=== PATIENT | male | born 1945 | race Caucasian/White ===

== ENCOUNTER → 2017-01-11 | Outpatient (CLI) | payer OTHER | LOC: BMCIMAGING 13:29 | PROVIDERS: ATTEND Internal Medicine Rheumatology | DX: M47.897 Other spondylosis, lumbosacral region (principal); M54.5 Low back pain; M70.61 Trochanteric bursitis, right hip; Z79.899 Other long term (current) drug therapy; Z12.5 Encounter for screening for malignant neoplasm of prostate ==

== ENCOUNTER → 2017-02-15 | Outpatient (CLI) | payer OTHER ==
[~2017-02-15] MED LIST: IOPAMIDOL (ISOVUE-M 200) 20 ML VIAL IV ONE; LIDOCAINE 1% 30 ML SDV ONE; NA BICARBONATE 50 MEQ/50 ML VIAL ONE
== END ==
LOC: FIMAGING 08:46
PROVIDERS: ATTEND Neurological Surgery
PROC: 3E0R3KZ Introduction of Other Diagnostic Substance into Spinal Canal, Percutaneous Approach (ICD-10-PCS; principal; 2017-02-15)
DX: M54.5 Low back pain (principal); M51.36 Other intervertebral disc degeneration, lumbar region
CPT/HCPCS: 62304; 72132; 72265; Q9966

== ENCOUNTER → 2017-02-23 | Outpatient (CLI) | payer OTHER | LOC: FCPNEURO 21:30 | PROVIDERS: ATTEND Psychiatry & Neurology Sleep Medicine | DX: G47.39 Other sleep apnea (principal) ==

== ENCOUNTER → 2017-03-06 | Outpatient (CLI) | payer OTHER | LOC: FCPNEURO 23:05 | PROVIDERS: ATTEND Psychiatry & Neurology Sleep Medicine | DX: G47.39 Other sleep apnea (principal) ==

== ENCOUNTER 2017-06-08 18:52 | Emergency (ER) | payer OTHER ==
[2017-06-08 18:58] VITALS: RESP 16; TEMP 97.5
--- NOTE | 2017-06-08 19:33 | EDPHY ---
H & P Time Seen by Provider: 06/08/17 19:27 HPI/ROS: CHIEF COMPLAINT: Abdominal pressure HISTORY OF PRESENT ILLNESS: The patient is a 71-year-old male presenting with abdominal pain that has been ongoing for the past 6 weeks, worse for the past 3 weeks. The patient reports upper abdominal pressure that comes and goes. It is worse after eating and improves after bowel movements or passing gas. The patient took Prilosec for 2 weeks and has been on a diet recommended by his PCP. Neither seem to alleviate his pain. He denies nausea, vomiting, or diarrhea. Patient is currently without abdominal pain. He additionally notes an intermittent headache behind his left eye for the past 6 weeks. This is worse when riding his bicycle. No reported visual changes. The patient has a pacemaker, on anticoagulants, he also complains of a 3 week history of shortness of breath with exertion. Patient states he feels short of breath and dizzy after walking up the stairs or bending over. He was seen in Dr. Hearn's office today and had his pacemaker evaluated, no abnormalities seen. He denies chest pain or palpitations. He feels more fatigued than usual. REVIEW OF SYSTEMS: A comprehensive 10 point review of systems is otherwise negative aside from elements mentioned in the history of present illness. Past Medical/Surgical History: Afib/flutter, on Xarelto Pacemaker, Kidney stones Social History: Nonsmoker. Occasional alcohol. . Smoking Status: Never smoked Physical Exam: General Appearance: Alert, pleasant Eyes: Pupils equal and round, no conjunctival pallor or injection ENT, Mouth: Mucous membranes moist Neck: Normal inspection Respiratory: Lungs are clear to auscultation Cardiovascular: Regular rate and rhythm Gastrointestinal: Abdomen is soft and non-tender Neurological: A&O, nonfocal, normal gait Skin: Warm and dry, no rash Extremities: Nontender, no pedal edema Psychiatric: Mood and affect normal Constitutional: Initial Vital Signs Temperature (C) 36.4 C 06/08/17 18:56 Heart Rate 71 06/08/17 18:56 Respiratory Rate 16 06/08/17 18:56 Blood Pressure 115/74 06/08/17 18:56 O2 Sat (%) 96 06/08/17 18:56 O2 Delivery Mode Room Air Allergies/Adverse Reactions: ENVIRONMENTAL Allergy (Mild, Uncoded 07/05/13 14:35) Other-Enter Comments Home Medications: Medication Instructions Recorded ARIPiprazole [Abilify 2 mg (RX)] 2 mg PO DAILY 01/29/13 Ascorbic Acid [Vitamin C 500 mg 500 mg PO DAILY 01/29/13 (OTC)] Cholecalciferol Vit D3 [Vitamin D3 400 units PO DAILY 01/29/13 400 units (OTC)] Escitalopram Oxalate [Lexapro 10 10 mg PO DAILY 01/29/13 MG (RX)] Multivitamins [Tab-A-Rocio] 1 each PO DAILY 01/29/13 [place]-3 Fatty Acids [Fish Oil 1000 1,000 mg PO BID 01/29/13 mg (OTC)] Vitamin E [Vitamin E 400 units 400 unit PO DAILY 01/29/13 (OTC)] Armodafinil [Nuvigil 250mg] 125 mg PO DAILY PRN 07/04/13 Methotrexate 2.5 mg PO 02/12/17 SOTALOL 120 mg PO BID 02/12/17 Tamsulosin HCl 0.5 meq PO BID 02/12/17 Xarelto 20 mg PO DAILY 02/12/17 traMADol 50 mg PO PRN PRN 02/12/17 Pantoprazole Sodium [Protonix 40mg 40 mg PO DAILY #20 tab 06/08/17 (*)] Medical Decision Making - Diagnostics EKG Interpretation: EKG interpreted by me reveals normal sinus rhythm, rate 69, PVCs, T-wave inversions inferiorly. Imaging Results: Imaging Impressions Chest X-Ray 06/08/17 19:43 Impression: 1. Suspect airways disease/COPD. 2. Borderline cardiomegaly without failure. Abdomen Ultrasound 06/08/17 19:44 Impression: 1. Normal gallbladder. 2. Suspect medical renal disease. Results discussed with Dr. Joel. Imaging: Discussed imaging studies w/ helper/driver Radiologist, I viewed and interpreted images myself ED Course/Re-evaluation: Patient presents with ongoing abdominal pressure with eating for the past 6 weeks. Plan to check abdominal ultrasound and lab work. Patient also complains of a 3 week h/o shortness of breath with exertion. Chest x-ray, EKG, and Troponin ordered. He is currently asymptomatic. Chest x-ray is negative for acute disease. Abdominal US shows normal gallbladder. Lab work is unremarkable. Patient ambulated throughout the emergency department and was asymptomatic. Oxygen saturation remained 93% on room air. I discussed admission versus prompt outpatient follow-up the patient and his . The patient greatly prefers to have a outpatient follow-up and declines admission. I consulted Dr. Harrison Costello, who will help arrange follow-up for early next week. He has been asymptomatic throughout his emergency department stay. No abdominal pressure and no shortness of breath. I think that these complaints are unrelated. The abd pain after eating is likely gastritis/PUD, especially given the normal GB sono and normal labs. Pt will f/u with GI on Sunday as previously scheduled. The exertional SOB will need further cardiopulm eval, and hopefully will be able to have a TmT early next week. Warning signs d/w pt, will return for worsening sx, any concerns. Differential Diagnosis: Differential diagnosis includes though it is not limited to pneumonia, pneumothorax, pulmonary embolism, aortic dissection, pericarditis, acute coronary syndrome. - Data Points Laboratory Results: Laboratory Results 06/08/17 19:57 06/08/17 19:57 06/08/17 06/08/17 06/08/17 19:57 19:57 19:57 WBC 4.54 10^3/uL 10^3/uL (3.80-9.50) RBC 4.22 10^6/uL L 10^6/uL (4.40-6.38) Hgb 13.8 g/dL g/dL (13.7-17.5) Hct 39.6 % L % (40.0-51.0) MCV 93.8 fL fL (81.5-99.8) MCH 32.7 pg pg (27.9-34.1) MCHC 34.8 g/dL g/dL (32.4-36.7) RDW 13.2 % % (11.5-15.2) Plt Count 134 10^3/uL L 10^3/uL (150-400) MPV 10.1 fL fL (8.7-11.7) Neut % (Auto) 57.1 % % (39.3-74.2) Lymph % (Auto) 29.3 % % (15.0-45.0) [place] % (Auto) 10.6 % % (4.5-13.0) Eos % (Auto) 2.4 % % (0.6-7.6) Baso % (Auto) 0.4 % % (0.3-1.7) Nucleat RBC Rel Count 0.0 % % (0.0-0.2) Absolute Neuts (auto) 2.59 10^3/uL 10^3/uL (1.70-6.50) Absolute Lymphs (auto) 1.33 10^3/uL 10^3/uL (1.00-3.00) Absolute Monos (auto) 0.48 10^3/uL 10^3/uL (0.30-0.80) Absolute Eos (auto) 0.11 10^3/uL 10^3/uL (0.03-0.40) Absolute Basos (auto) 0.02 10^3/uL 10^3/uL (0.02-0.10) Absolute Nucleated RBC 0.00 10^3/uL 10^3/uL (0-0.01) Immature Gran % 0.2 % % (0.0-1.1) Immature Gran # 0.01 10^3/uL 10^3/uL (0.00-0.10) D-Dimer < 0.27 ug/mLFEU ug/mLFEU (0.00-0.50) Sodium 139 mEq/L mEq/L (134-144) Potassium 3.9 mEq/L mEq/L (3.5-5.2) Chloride 104 mEq/L mEq/L (97-110) Carbon Dioxide 23 mEq/l mEq/l (22-31) Anion Gap 12 mEq/L mEq/L (8-16) BUN 20 mg/dL mg/dL (7-23) Creatinine 0.9 mg/dL mg/dL (0.7-1.3) Estimated GFR > 60 Glucose 71 mg/dL mg/dL (70-100) Calcium 9.2 mg/dL mg/dL (8.5-10.4) Total Bilirubin 0.7 mg/dL mg/dL (0.1-1.4) Conjugated Bilirubin 0.3 mg/dL mg/dL (0.0-0.5) Unconjugated Bilirubin 0.4 mg/dL mg/dL (0.0-1.1) AST 53 IU/L IU/L (17-59) ALT 51 IU/L IU/L (21-72) Alkaline Phosphatase 59 IU/L IU/L (38-126) Troponin I 0.022 ng/mL ng/mL (0-0.034) NT-Pro-B Natriuret Pep 713 pg/mL H pg/mL (0-125) Total Protein 6.7 g/dL g/dL (6.3-8.2) Albumin 3.9 g/dL g/dL (3.5-5.0) Lipase 125.0 IU/L IU/L (23-300) Medications Given: Discontinued Medications Pantoprazole Sodium (Protonix) 40 mg PO EDNOW ONE Stop: 06/08/17 22:22 Last Admin: 06/08/17 22:42 Dose: 40 mg Departure - Departure Disposition: Home, Routine, Self-Care Clinical Impression: Abdominal pain Qualifiers: Abdominal location: epigastric Qualified Code(s): R10.13 - Epigastric pain Dyspnea Qualifiers: Dyspnea type: dyspnea on exertion Qualified Code(s): R06.09 - Other forms of dyspnea Condition: Good Instructions: Peptic Ulcer (ED), Diet for Stomach Ulcers and Gastritis (ED), Dyspnea (ED) Additional Instructions: Take Maalox 30 minutes before meals and at bedtime. Avoid fatty and spicy foods. Referrals: Uriel Adams MD [Primary Care Provider] - As per Instructions Prescriptions: Pantoprazole Sodium [Protonix 40mg (*)] 40 mg PO DAILY #20 tab Report Scribed for: Silva Joel Report Scribed by: Belem Martin Date of Report: 06/08/17 Time of Report: 19:34 Physician Review and Approval Statement: 06/08/17 19:34 Portions of this note were transcribed by a medical technologist microbiology. I personally performed the history, physical exam, and medical decision-making; and confirmed the accuracy of the information in the transcribed note.
--- NOTE | 2017-06-08 19:49 | CPEKG ---
Heart Rate: 69 RR Interval: 870 P-R Interval: 190 QRSD Interval: 106 QT Interval: 428 QTC Interval: 459 P [place]: 0 QRS [place]: -50 T Wave [place]: -30 EKG Severity - ABNORMAL ECG - EKG Impression: SINUS RHYTHM EKG Impression: MULTIPLE VENTRICULAR PREMATURE COMPLEXES EKG Impression: LEFT ANTERIOR FASCICULAR BLOCK EKG Impression: NONSPECIFIC T ABNORMALITIES, INFERIOR LEADS Electronically Signed By: Paddy Garcia 08-Jun-2017 21:04:36
[2017-06-08 20:06] LABS: % IMMATURE GRANULYOCYTES 0.2 % (0.0-1.1); ABSOLUTE IMMATURE GRANULOCYTES 0.01 10^3/uL (0.00-0.10); ADD DIFF? NO; ADD MORPH? NO; ADD SCAN? NO; ATYPICAL LYMPHOCYTE FLAG 30 (0-99); FRAGMENT RBC FLAG 0 (0-99); HEMATOCRIT 39.6 % (40.0-51.0); HEMOGLOBIN 13.8 g/dL (13.7-17.5); LEFT SHIFT FLG 0 (0-99); LIPEMIA HEMOLYSIS FLAG 90 (0-99); MEAN CELL HEMOGLOBIN 32.7 pg (27.9-34.1); MEAN CELL HEMOGLOBIN CONCENTR. 34.8 g/dL (32.4-36.7); MEAN CELL VOLUME 93.8 fL (81.5-99.8); MEAN PLATELET VOLUME 10.1 fL (8.7-11.7); PLATELET CLUMPS FLAG 0 (0-99); PLATELET COUNT 134 10^3/uL (150-400); RED BLOOD CELL COUNT 4.22 10^6/uL (4.40-6.38); RED CELL DISTRIBUTION WIDTH 13.2 % (11.5-15.2)
[2017-06-08 20:19] LABS: ALANINE AMINOTRANSFERASE 51 IU/L (21-72); ALBUMIN 3.9 g/dL (3.5-5.0); ALKALINE PHOSPHATASE 59 IU/L (38-126); ANION GAP 12 mEq/L (8-16); ASPARTATE AMINOTRANSFERASE 53 IU/L (17-59); BILIRUBIN,TOTAL 0.7 mg/dL (0.1-1.4); BILIRUBIN-CONJUGATED 0.3 mg/dL (0.0-0.5); BILIRUBIN-UNCONJUGATED 0.4 mg/dL (0.0-1.1); CALCIUM 9.2 mg/dL (8.5-10.4); CARBON DIOXIDE 23 mEq/l (22-31); CHLORIDE 104 mEq/L (97-110); CREATININE 0.9 mg/dL (0.7-1.3); GLOMERULAR FILTRATION RATE > 60; GLUCOSE 71 mg/dL (70-100); POTASSIUM 3.9 mEq/L (3.5-5.2); SODIUM 139 mEq/L (134-144); TOTAL PROTEIN 6.7 g/dL (6.3-8.2)
[2017-06-08 20:30] LABS: TROPONIN I 0.022 ng/mL (0-0.034)
[2017-06-08 21:30] VITALS: O2SAT 95
[2017-06-08] MEDS ORDERED: PANTOPRAZOLE SODIUM 40 MG TAB PO ONE (22:21)
[2017-06-08 22:39] VITALS: BP 139/74; PULSE 76
== END 2017-06-08 22:43 | disposition home or self-care (01) ==
DX: R10.13 Epigastric pain (principal); R06.09 Other forms of dyspnea; Z79.01 Long term (current) use of anticoagulants; Z95.0 Presence of cardiac pacemaker

== ENCOUNTER → 2017-06-11 | Outpatient (CLI) | payer OTHER | LOC: BHFA 16:00 | PROVIDERS: ATTEND Internal Medicine Cardiovascular Disease | DX: R06.09 Other forms of dyspnea (principal); R42 Dizziness and giddiness ==

== ENCOUNTER → 2017-06-29 | Outpatient (CLI) | payer OTHER | LOC: BHFA 15:30 | PROVIDERS: ATTEND Internal Medicine Cardiovascular Disease | DX: R42 Dizziness and giddiness (principal); I47.1 Supraventricular tachycardia; Z95.0 Presence of cardiac pacemaker ==

== ENCOUNTER 2017-08-05 10:58 | Inpatient (IN) | payer OTHER ==
--- NOTE | 2017-08-05 11:20 | CPEKG ---
Heart Rate: 78 RR Interval: 769 P-R Interval: 224 QRSD Interval: 150 QT Interval: 456 QTC Interval: 520 P [place]: 14 QRS [place]: -81 T Wave [place]: 70 EKG Severity - ABNORMAL ECG - EKG Impression: ATRIAL-VENTRICULAR DUAL-PACED COMPLEXES Electronically Signed By: Jt Resendiz 05-Aug-2017 12:16:00
--- NOTE | 2017-08-05 11:44 | EDPHY ---
H & P Time Seen by Provider: 08/05/17 11:22 HPI/ROS: CHIEF COMPLAINT: Short of breath and racing heart rate HISTORY OF PRESENT ILLNESS: Patient is had a pacemaker for atrial fibrillation and flutter and is currently on Xarelto. He has had symptoms for intermittently over the last year, worse for the last 2 months, and much worse today. Over last 2 months he notices difficulty breathing with rapid heart rate for a few seconds to a minute several times a day. Occasionally he will get dizzy and short of breath going up the stairs. Today he was walking out to the [employer] van to get a bicycle pump for his when he felt severely short of breath and his heart was racing and he could not walk more than to the door of the house before having to catch his breath. Not associated with chest pain. Associated with some left hand tingling Kimmie some tightness in his left upper arm. Worse with exertion. REVIEW OF SYSTEMS: Eye: no change in vision ENT: no sore throat Cardiac: HPI Pulmonary: No cough or hemoptysis Abdomen: no vomiting, diarrhea, abdominal pain Musculoskeletal: no back pain or leg swelling Skin: no rash Neuro: Intermittent headache behind his left eye for the last 4 months, not currently present. Constitutional: no fever : no urinary symptoms A comprehensive 10 point review of systems is otherwise negative aside from elements mentioned in the history of present illness. PAST MEDICAL HISTORY: Pacemaker from [employer], atrial fibrillation and flutter with ablation, rotator cuff injury, tonsillectomy. Multiple orthopedic surgeries per Social history: , nonsmoker. General Appearance: Alert and conversant, cooperative. Eyes: No scleral icterus. ENT, Mouth: Normal mucous membranes. Respiratory: Normal respiratory effort, breath sounds equal, lungs are clear to auscultation. Cardiovascular: Regular rate and rhythm. Gastrointestinal: Abdomen is soft and non tender. Neurological: Alert and oriented x3. Normally conversant. Face symmetric, normal movement and sensation in all extremities. Skin: Warm and dry, no rashes. Musculoskeletal: No peripheral edema and no joint swelling. No calf tenderness. Psychiatric: Not agitated. Emergency Department course/MDM: Plan for pacemaker interrogation, labs to include troponin and BNP, admission to hospital for severe symptoms. I think pneumonia would be unlikely by symptoms. I think pulmonary embolism would be unlikely as he is actively anticoagulated. Differential includes but not limited to ACS, dysrhythmia, CHF for decreased pump function. Smoking Status: Never smoked Constitutional: Initial Vital Signs Temperature (C) 36.5 C 08/05/17 11:02 Heart Rate 71 08/05/17 11:02 Respiratory Rate 16 08/05/17 11:02 Blood Pressure 103/51 L 08/05/17 11:02 O2 Sat (%) 95 08/05/17 11:02 O2 Delivery Mode Room Air Allergies/Adverse Reactions: ENVIRONMENTAL Allergy (Mild, Uncoded 07/05/13 14:35) Other-Enter Comments Home Medications: Medication Instructions Recorded ARIPiprazole [Abilify 2 mg (RX)] 2 mg PO DAILY 01/29/13 Ascorbic Acid [Vitamin C 500 mg 500 mg PO BID 01/29/13 (OTC)] Escitalopram Oxalate [Lexapro 10 10 mg PO DAILY 01/29/13 MG (RX)] Multivitamins [Tab-A-Rocio] 1 tab PO DAILY 01/29/13 [place]-3 Fatty Acids [Fish Oil 1000 1,000 mg PO BID 01/29/13 mg (OTC)] Armodafinil [Nuvigil 250mg] 250 mg PO DAILY 07/04/13 Rivaroxaban [Xarelto] 20 mg PO HS 02/12/17 Sotalol HCl [Sotalol] 120 mg PO BID 02/12/17 Tamsulosin HCl [Flomax 0.4 MG (*)] 0.8 mg PO HS 02/12/17 Herbals/Supplements -Info Only 1 ea PO DAILY 08/05/17 Pantoprazole Sodium [Protonix 40mg 40 mg PO Q3D 08/05/17 (*)] Sucralfate [Carafate 1gm/10ml Oral 1 gm PO DAILY PRN 08/05/17 Liquid (*)] inFLIXimab [Remicade Inj 100 mg 0 mg IV Q56D 08/05/17 (*)] Medical Decision Making - Diagnostics EKG Interpretation: 12-lead EKG interpreted by me; official reading is in trace master. My interpretation is AV dual pacing rate of 78. Imaging Results: Imaging Impressions Chest X-Ray 08/05/17 11:42 Impression: 1. No active cardiopulmonary disease seen. 2. Mild fibrotic streaks suspected at the left base. Trace left basilar atelectasis on chest x-ray personally interpreted Differential Diagnosis: Differential diagnosis considered for shortness of breath including but not limited to pulmonary infectious process, COPD, asthma, pulmonary embolus and congestive heart failure. Consult/Admit Bed Type: Arnulfo Rojo 1211, Rafi 1242 - Data Points Laboratory Results: Laboratory Results 08/05/17 11:30 08/05/17 11:30 08/05/17 08/05/17 11:30 11:30 WBC 4.83 10^3/uL 10^3/uL (3.80-9.50) RBC 4.44 10^6/uL 10^6/uL (4.40-6.38) Hgb 14.3 g/dL g/dL (13.7-17.5) Hct 41.8 % % (40.0-51.0) MCV 94.1 fL fL (81.5-99.8) MCH 32.2 pg pg (27.9-34.1) MCHC 34.2 g/dL g/dL (32.4-36.7) RDW 13.3 % % (11.5-15.2) Plt Count 143 10^3/uL L 10^3/uL (150-400) MPV 9.9 fL fL (8.7-11.7) Neut % (Auto) 57.6 % % (39.3-74.2) Lymph % (Auto) 30.0 % % (15.0-45.0) [place] % (Auto) 10.6 % % (4.5-13.0) Eos % (Auto) 1.2 % % (0.6-7.6) Baso % (Auto) 0.4 % % (0.3-1.7) Nucleat RBC Rel Count 0.0 % % (0.0-0.2) Absolute Neuts (auto) 2.78 10^3/uL 10^3/uL (1.70-6.50) Absolute Lymphs (auto) 1.45 10^3/uL 10^3/uL (1.00-3.00) Absolute Monos (auto) 0.51 10^3/uL 10^3/uL (0.30-0.80) Absolute Eos (auto) 0.06 10^3/uL 10^3/uL (0.03-0.40) Absolute Basos (auto) 0.02 10^3/uL 10^3/uL (0.02-0.10) Absolute Nucleated RBC 0.00 10^3/uL 10^3/uL (0-0.01) Immature Gran % 0.2 % % (0.0-1.1) Immature Gran # 0.01 10^3/uL 10^3/uL (0.00-0.10) Sodium 139 mEq/L mEq/L (134-144) Potassium 4.2 mEq/L mEq/L (3.5-5.2) Chloride 103 mEq/L mEq/L (97-110) Carbon Dioxide 25 mEq/l mEq/l (22-31) Anion Gap 11 mEq/L mEq/L (8-16) BUN 21 mg/dL mg/dL (7-23) Creatinine 0.7 mg/dL mg/dL (0.7-1.3) Estimated GFR > 60 Glucose 94 mg/dL mg/dL (70-100) Calcium 9.3 mg/dL mg/dL (8.5-10.4) Troponin I 0.014 ng/mL ng/mL (0.000-0.034) NT-Pro-B Natriuret Pep 307 pg/mL H pg/mL (0-125) Departure - Departure Disposition: [facility] Inpatient Acute Clinical Impression: Dyspnea on exertion, Palpitations Condition: Fair
[2017-08-05 11:45] LABS: % IMMATURE GRANULYOCYTES 0.2 % (0.0-1.1); ABSOLUTE IMMATURE GRANULOCYTES 0.01 10^3/uL (0.00-0.10); ADD DIFF? NO; ADD MORPH? NO; ADD SCAN? NO; ATYPICAL LYMPHOCYTE FLAG 10 (0-99); FRAGMENT RBC FLAG 0 (0-99); HEMATOCRIT 41.8 % (40.0-51.0); HEMOGLOBIN 14.3 g/dL (13.7-17.5); LEFT SHIFT FLG 0 (0-99); LIPEMIA HEMOLYSIS FLAG 90 (0-99); MEAN CELL HEMOGLOBIN 32.2 pg (27.9-34.1); MEAN CELL HEMOGLOBIN CONCENTR. 34.2 g/dL (32.4-36.7); MEAN CELL VOLUME 94.1 fL (81.5-99.8); MEAN PLATELET VOLUME 9.9 fL (8.7-11.7); PLATELET CLUMPS FLAG 0 (0-99); PLATELET COUNT 143 10^3/uL (150-400); RED BLOOD CELL COUNT 4.44 10^6/uL (4.40-6.38); RED CELL DISTRIBUTION WIDTH 13.3 % (11.5-15.2)
[2017-08-05 11:52] LABS: ANION GAP 11 mEq/L (8-16); CALCIUM 9.3 mg/dL (8.5-10.4); CARBON DIOXIDE 25 mEq/l (22-31); CHLORIDE 103 mEq/L (97-110); CREATININE 0.7 mg/dL (0.7-1.3); GLOMERULAR FILTRATION RATE > 60; GLUCOSE 94 mg/dL (70-100); POTASSIUM 4.2 mEq/L (3.5-5.2); SODIUM 139 mEq/L (134-144)
[2017-08-05 12:05] LABS: TROPONIN I 0.014 ng/mL (0.000-0.034)
[2017-08-05] MEDS ORDERED: ACETAMINOPHEN 325 MG TAB PO PRN (13:10)
[2017-08-05] MEDS ORDERED: oxyCODONE IR 5 MG TAB PO PRN (13:10)
[2017-08-05] MEDS ORDERED: ONDANSETRON DISINTEGRATING 4 MG TAB PO PRN (13:10)
[2017-08-05] MEDS ORDERED: ONDANSETRON 4 MG/2 ML VIAL IVP PRN (13:10)
[2017-08-05] MEDS ORDERED: NS 1,000 ML IV SCH (13:15)
--- NOTE | 2017-08-05 15:48 | PDGENHP ---
History and Physical - Chief Complaint sob/left arm pain - History of Present Illness 71 yo M with pmh of a flutter s/p ablation and pacer presenting with one month of sob with exertion and now new onset left finger tingling and left arm tightness and pain. He notes he has not had this in the past although the sob and palpitations have been present for 1 month. He has had near syncope on occasion following both exertion and following bending over and standing up. He denies chest pain. He notes that one and a half months ago he had similar issues and was worked up with a stress test that had to be stopped early because he had HR's that were both increasing and decreasing rapidly during the test. Because of that and his sob he had a holter placed a month ago that has not been read yet. He has not had chest pain. Outside of these episodes he has not had sob and he has no chronic breathing issues. History Information - Allergies/Home Medication List Allergies/Adverse Reactions: ENVIRONMENTAL Allergy (Mild, Uncoded 07/05/13 14:35) Other-Enter Comments Home Medications: ARIPiprazole [Abilify 2 mg (RX)] 2 mg PO DAILY 01/29/13 [Last Taken 08/05/17 08: 00] Ascorbic Acid [Vitamin C 500 mg (OTC)] 500 mg PO BID 01/29/13 [Last Taken 08:00] Escitalopram Oxalate [Lexapro 10 MG (RX)] 10 mg PO DAILY 01/29/13 [Last Taken 08:00] Multivitamins [Tab-A-Rocio] 1 tab PO DAILY 01/29/13 [Last Taken 08/05/17 08:00] [place]-3 Fatty Acids [Fish Oil 1000 mg (OTC)] 1,000 mg PO BID 01/29/13 [Last Taken 08/05/17 08:00] Armodafinil [Nuvigil 250mg] 250 mg PO DAILY 07/04/13 [Last Taken 08/05/17 08:00] Rivaroxaban [Xarelto] 20 mg PO HS 02/12/17 [Last Taken 08/04/17 21:00] Sotalol HCl [Sotalol] 120 mg PO BID 02/12/17 [Last Taken 08/05/17 08:00] Tamsulosin HCl [Flomax 0.4 MG (*)] 0.8 mg PO HS 02/12/17 [Last Taken 08/04/17 21 :00] Herbals/Supplements -Info Only 1 ea PO DAILY 08/05/17 [Last Taken Unknown] Pantoprazole Sodium [Protonix 40mg (*)] 40 mg PO Q3D 08/05/17 [Last Taken ] Sucralfate [Carafate 1gm/10ml Oral Liquid (*)] 1 gm PO DAILY PRN 08/05/17 [Last Taken Unknown] inFLIXimab [Remicade Inj 100 mg (*)] 0 mg IV Q56D 08/05/17 [Last Taken 06/25/17] I have personally reviewed and updated: family history, medical history, social history, surgical history - Past Medical History atrial fibrillation (flutter), arthritis (psoriatic), degenerative disc disease , GERD Additional medical history: BPH - Surgical History Reports: pacemaker/AICD Additional surgical history: multiple orthopedic surgeries. 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 Review of Systems Review of Systems: ROS: 10pt was reviewed & negative except for what was stated in HPI & below Physical Exam Physical Exam: Temp Pulse Resp BP Pulse Ox 37.1 C 93 16 130/82 H 94 08/05/17 13:40 08/05/17 13:40 08/05/17 13:40 08/05/17 13:40 08/05/17 13:40 Constitutional: no apparent distress, appears nourished Eyes: PERRL Ears, Nose, Mouth, Throat: moist mucous membranes, hearing normal, ears appear normal Cardiovascular: regular rate and rhythym Respiratory: no respiratory distress, clear to auscultation Gastrointestinal: normoactive bowel sounds, soft, non-tender abdomen Skin: warm, normal color Musculoskeletal: full muscle strength Neurologic: AAOx3 Psychiatric: interacting appropriately, not anxious, not encephalopathic Lab Data & Imaging Review 08/05/17 11:30 08/05/17 11:30 WBC 4.83 10^3/uL (3.80-9.50) 08/05/17 11:30 RBC 4.44 10^6/uL (4.40-6.38) 08/05/17 11:30 Hgb 14.3 g/dL (13.7-17.5) 08/05/17 11:30 Hct 41.8 % (40.0-51.0) 08/05/17 11:30 MCV 94.1 fL (81.5-99.8) 08/05/17 11:30 MCH 32.2 pg (27.9-34.1) 08/05/17 11:30 MCHC 34.2 g/dL (32.4-36.7) 08/05/17 11:30 RDW 13.3 % (11.5-15.2) 08/05/17 11:30 Plt Count 143 10^3/uL (150-400) L 08/05/17 11: MPV 9.9 fL (8.7-11.7) 08/05/17 11:30 Neut % (Auto) 57.6 % (39.3-74.2) 08/05/17 11:30 Lymph % (Auto) 30.0 % (15.0-45.0) 08/05/17 11:30 [place] % (Auto) 10.6 % (4.5-13.0) 08/05/17 11:30 Eos % (Auto) 1.2 % (0.6-7.6) 08/05/17 11:30 Baso % (Auto) 0.4 % (0.3-1.7) 08/05/17 11:30 Nucleat RBC Rel Count 0.0 % (0.0-0.2) 08/05/17 11:30 Absolute Neuts (auto) 2.78 10^3/uL (1.70-6.50) 08/05/17 11:30 Absolute Lymphs (auto) 1.45 10^3/uL (1.00-3.00) 08/05/17 11:30 Absolute Monos (auto) 0.51 10^3/uL (0.30-0.80) 08/05/17 11:30 Absolute Eos (auto) 0.06 10^3/uL (0.03-0.40) 08/05/17 11:30 Absolute Basos (auto) 0.02 10^3/uL (0.02-0.10) 08/05/17 11:30 Absolute Nucleated RBC 0.00 10^3/uL (0-0.01) 08/05/17 11:30 Immature Gran % 0.2 % (0.0-1.1) 08/05/17 11:30 Immature Gran # 0.01 10^3/uL (0.00-0.10) 08/05/17 11:30 Sodium 139 mEq/L (134-144) 08/05/17 11:30 Potassium 4.2 mEq/L (3.5-5.2) 08/05/17 11:30 Chloride 103 mEq/L (97-110) 08/05/17 11:30 Carbon Dioxide 25 mEq/l (22-31) 08/05/17 11:30 Anion Gap 11 mEq/L (8-16) 08/05/17 11:30 BUN 21 mg/dL (7-23) 08/05/17 11:30 Creatinine 0.7 mg/dL (0.7-1.3) 08/05/17 11:30 Estimated GFR > 60 08/05/17 11:30 Glucose 94 mg/dL (70-100) 08/05/17 11:30 Calcium 9.3 mg/dL (8.5-10.4) 08/05/17 11:30 Troponin I 0.014 ng/mL (0.000-0.034) 08/05/17 11:30 NT-Pro-B Natriuret Pep 307 pg/mL (0-125) H 08/05/17 11:30 Visualized and Interpreted Chest x-ray results: Yes Chest X-Ray results: normal Visualized and Interpreted EKG results: Yes EKG Interpretation: Positive for: other (AV paced complexes) Assessment & Plan Assessment: Dyspnea on exertion (Acute) Palpitations (Acute) 71 yo M with PMH of a flutter/sss s/p ablation and pacer presenting with sob and left arm pain/tingling # sob/left arm pain and tingling:mostly exertional chest pain and now with associated left arm pain and left finger tingling concerning for anginal equivalent. Per patient he had a stress test 6 weeks ago that was not completed due to HR irregularity although I do not currently have access to that report. Will monitor on tele, trend serial trops and ecgs. Cardiology has been consulted and will keep patient npo after MN in case they feel angiogram is indicated. He has been wearing a holter for the last month and hoping that cardiology will be able to interrogate this when they consult. # a flutter: personally reviewed ecg and tele notable for a-v paced rhythm, rate controlled, will continue his home meds including xarelto, sotalol # psoriatic arthritis: has been recently started on Remicade and states his sxs have improved # bph: continue tamsulosin # gerd: continue ppi # psychiatric: continue aripiprazole and escitalopram # chronic back pain: affecting L5/S1 and followed by [facility] # observation status Patient new to my care. Old records reviewed and summarized as above.
[2017-08-05] MEDS ORDERED: SUCRALFATE 1 GM/10 ML UDCUP PO PRN (15:56)
[2017-08-05] MEDS: OMEGA-3 FATTY ACIDS 1,000 MG CAP PO SCH (20:24)
[2017-08-05] MEDS: ASCORBIC ACID 500 MG TAB PO SCH (20:26)
[2017-08-05] MEDS: SOTALOL HCL 80 MG TAB PO SCH (20:27)
[2017-08-05] MEDS: TAMSULOSIN HCL 0.4 MG CAP PO SCH (20:27)
[2017-08-05] MEDS ORDERED: RIVAROXABAN 20 MG TAB PO SCH (21:00)
[2017-08-05] MEDS ORDERED: NON-FORMULARY NEW DRUG (Sotalol Hcl [Sotalol] 120 MG) PO SCH (21:00)
[2017-08-06] MEDS: OMEGA-3 FATTY ACIDS 1,000 MG CAP PO SCH ×2 (08:21→20:49)
[2017-08-06] MEDS: MULTIVITAMINS 1 EACH TAB PO SCH (08:21)
[2017-08-06] MEDS: ESCITALOPRAM OXALATE 10 MG TAB PO SCH (08:22)
[2017-08-06] MEDS: SOTALOL HCL 80 MG TAB PO SCH ×2 (08:22→20:49)
[2017-08-06] MEDS: ASCORBIC ACID 500 MG TAB PO SCH ×2 (08:22→20:49)
[2017-08-06] MEDS: ARIPiprazole 2 MG TAB PO SCH (08:22)
[2017-08-06] MEDS: Armodafinil [Nuvigil 250mg] 250 MG PO SCH (08:24)
--- NOTE | 2017-08-06 08:42 | CPEKG ---
Heart Rate: 65 RR Interval: 923 P-R Interval: 260 QRSD Interval: 96 QT Interval: 452 QTC Interval: 470 P [place]: -37 QRS [place]: -50 T Wave [place]: -25 EKG Severity - ABNORMAL ECG - EKG Impression: ATRIAL-PACED RHYTHM EKG Impression: First degree AV block, LEFT ANTERIOR FASCICULAR BLOCK EKG Impression: REPOL ABNRM SUGGESTS ISCHEMIA, ANT-LAT LEADS Electronically Signed By: Kael Hearn 06-Aug-2017 08:57:25
[2017-08-06] MEDS ORDERED: REGADENOSON 0.4 MG/5 ML SYR IVP ONE (13:31)
--- NOTE | 2017-08-06 16:35 | HOSPPROG ---
Hospitalist Progress Note Assessment/Plan: 71-year-old male the past history of an atrial ablation, pacemaker who presents with intermittent episodes of dizziness and near syncope and some shortness of breath. Patient is new to me today. He has a 30 day event monitor which is being interrogated today. - Shortness of breath and some exertional chest pain left arm tingling. I doubt this is cardiac ischemia but probably more rhythm disturbance with his atrial fib and flutter. Interrogation of the 30 day event monitor would show that he may have a delay in recognition of atrial fibrillation causing accelerated ventricular response of his pacemaker. He has several of these episodes and this will be discussed with Cardiology. - Lexiscan so is a possible old infarct in the inferior border. Patient has opted for cardiac catheterization tomorrow for definitive evaluation. - Case is discussed with Cardiology and x-rays and rhythms were all reviewed. - Atrial fib and flutter anticoagulated on Xarelto. - Psoriatic arthritis for which she has recently started on Remicade and reports that his symptoms have improved. - BPH: Continue tamsulosin - GERD: Continue PPI - psychiatric: Will continue his aripiprazole and escitalopram - chronic back pain followed by Dr. Terry Subjective: no complaints of chest pain or shortness of breath. Objective: Vital Signs Temp Pulse Resp BP Pulse Ox 36.7 C 67 17 118/71 92 08/06/17 16:00 08/06/17 16:00 08/06/17 16:00 08/06/17 16:00 08/06/17 16:00 08/05/17 08/06/17 08/07/17 05:59 05:59 05:59 Intake Total 990 Balance 990 - Time Spent With Patient Time Spent with Patient: greater than 35 minutes Time Spent with Patient: Greater than 35 minutes spent on this patients care, greater than 50% of time spent counseling, educating, and coordinating care regarding the above mentioned plan. - Pending Discharge Pending Discharge Within 24 Hours: Yes Pending Discharge Date: 08/07/17 Pending Discharge Time: 11:00 - Physical Exam Constitutional: no apparent distress, appears nourished Eyes: PERRL, anicteric sclera Ears, Nose, Mouth, Throat: moist mucous membranes, hearing normal Cardiovascular: irregularly irregular Respiratory: no respiratory distress, no rales or rhonchi, clear to auscultation Gastrointestinal: normoactive bowel sounds, soft, non-tender abdomen, no palpable masses Genitourinary: no bladder fullness Skin: warm Musculoskeletal: full muscle strength Neurologic: AAOx3, CN II-XII Intact Psychiatric: interacting appropriately ICD10 Worksheet Patient Problems: Problems Problem Status Onset Atrial fibrillation and flutter Active Dyspnea on exertion Acute Palpitations Acute
--- NOTE | 2017-08-06 16:36 | ASMTCMCOM ---
CM Note CM Note Notes: 08/06/2017 Case Management Note: Reviewed chart, spoke w/RN. No case management d/c needs identified d/t pt age and activity level prior to admission and lack of therapy evals ordered. Case Management d/c poc: Home independent when medically stable. Case Management available if needs change. Date Signed: 08/06/2017 04:35 PM Electronically Signed By:Maia Bella
--- NOTE | 2017-08-06 16:50 | GCON ---
[f rep st] CONSULTATION CARDIOLOGY CONSULTATION INDICATION FOR CARDIOLOGY CONSULTATION: The patient is reporting episodes of palpitations, increased shortness of breath, known history of atrial flutter, supraventricular tachycardia, and sick sinus s yndrome with remote pacemaker implantation. HISTORY OF PRESENT ILLNESS: The patient is a 71-year-old male who is known to our practice. 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 The patient reports, over the last 3 months, of having significant episodes of fatigue; he has also noticed more dyspnea on exertion. He has recently under gone stress testing in our office in early May, in which he was noted to have a sudden fast tachycar rj rhythm, with heart rates up to 130 beats per minute, ventricular paced, thought possibly atrial f ibrillation or pacemaker-mediated tachycardia. He had seen Dr. Cochran in electrophysiology services on June 29; at that time, he reviewed his strips and decided, for further evaluation, the patient would do a 30-day monitor. He reports he has been wearing the monitor without fail. He reports that he has been noticing several times a day where he has been feeling palpitations, with increased elevated he art rates. He has also been experiencing episodes of dizziness. He has also noticed, in the last week or two, developing more shortness of breath with exertion, reporting he is finding it hard to climb 1 flight of stairs without having to stop to catch his breath. He reports that yesterday he was retur jl from a camping trip; he was moving. He was unloading his camper, and walking from his back porch to his camper, he felt his heart rate start racing suddenly, he became dizzy and somewhat lightheade d. He reported then he developed a left shoulder/arm pressure, and tingling in his fingers. The total episode lasted close to 20 to 30 seconds, and then dissipated. This is first time that he experience d any arm pain or tingling, and with great concern, came to the hospital for further evaluation. Upon arrival, he did undergo electrocardiogram, which showed AV paced. Initial troponin was 0.014. He was noted to have mildly elevated BNP at 307. Chest x-ray showed no acute cardiopulmonary process. A [employer] pacemaker rep did come and interrogate the device, showing no higher ventricular rate events a nd no mode switching suggesting atrial fibrillation. He was admitted to the telemetry unit overnight; he has been in sinus rhythm, or AV paced, throughout the evening. He reports no further episodes of lightheadedness or dizziness. He reports he still has a tingling in the left arm, but denies any ches t pain or pressure. He reports no history of syncope or near syncope. Reports no orthopnea, PND, steven a, sudden weight gain. Denies any recent fevers, chills, or night sweats. The patient reports he has been compliant with taking all his medications including Xarelto and sotalol. The patient has signifi cant cardiac risk factors that include age, sex, hypertension. PAST MEDICAL HISTORY: Includes atrial flutter, supraventricular tachycardia, symptomatic bradycardia , hypertension, osteoarthritis, degenerative disc disease, GERD, sleep apnea, restless leg syndrome. PAST SURGICAL HISTORY: 1. Includes atrial flutter ablation. 2. AVNRT ablation. 3. Pacemaker implantation. 4. Tonsillectomy. 5. Wrist surgery. 6. Foot surgery. 7. Knee surgery. 8. Bunionectomy. FAMILY HISTORY: Patient reports father of congestive heart failure at age 68, is uncertain if h e actually had heart disease but does report he was a significant smoker and drinker. 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 He is , he has no children. He reports he has never smoked but was around secondhand smoke all his adult life. He has 1 or 2 beers once or twice a week. He denies any illicit drug use. ALLERGIES: The patient reports some environmental allergies but no known medication allergies. MEDICATIONS AT HOME: Include Carafate 1 g p.o. daily p.r.n., Remicade 100 mg injection IV every 56 d ays. Flomax 0.8 mg p.o. h.s. Xarelto 20 mg p.o. h.s. Sotalol 120 mg p.o. b.i.d. Protonix 40 mg p.o. e very 3 days. Fish oil 1000 mg p.o. b.i.d. Multivitamin 1 tablet p.o. daily. Lexapro 10 mg p.o. daily. Vitamin C 500 mg p.o. b.i.d. Nuvigil 250 mg p.o. daily. Amplify 2 mg p.o. daily. REVIEW OF SYSTEMS: A 10-point review of systems done on patient all negative, except as mentioned ab ove. PHYSICAL EXAMINATION: GENERAL APPEARANCE: Medium built, well-groomed male. He is alert and oriented to person, place, time, and situation. Appears to be under no acute distress. CURRENT VITAL SIGNS: Blood pressure 128/58. Heart rate 68, AV paced on the monitor. Respirations 17, saturating 92 % on room air. Temperature 36.5 degrees Celsius. HEENT: Head is normocephalic. Lips and tongue are pi nk and moist, with no signs of cyanosis. Conjunctivae pink. NECK: Trachea is midline, +2 carotid puls es bilateral. No auscultated bruits, no jugular vein distention. RESPIRATORY: Lungs clear to ausculta tion. No rhonchi, rales or wheezes. No accessory muscle use, no intercostal muscle retraction noted. CARDIAC: Regular rate, regular rhythm, S1, S2. No S3, S4, gallops, rubs or murmur. ABDOMEN: Soft, non tender, bowel sounds x4 quadrants, no organomegaly, no palpable masses. SKIN: [place], warm, dry, no cya nosis, no clubbing, no peripheral edema. VASCULAR: +2 carotids bilateral, +2 radials bilateral, +2 po sterior tibial pulses bilateral. LABORATORY STUDIES: Drawn on admission showed WBC of 4.83, hemoglobin 14.3, hematocrit of 41.8, plat elet count 143, sodium 139, potassium 4.2, chloride 103, CO2 of 25, BUN 21, creatinine 0.7, glucose 9 4, calcium 9.3, troponin of 0.014. Initially on the ER admission proBNP 307, repeated BNP was 0.015. IMAGING STUDIES: Initial electrocardiogram as mentioned above. Chest x-ray as mentioned above. A rep eated EKG this morning shows atrial paced with intrinsic ventricular response, leftward axis, left an terior fascicular block. No acute inverted T-waves noted in inferior lateral leads. Preliminary echoc ardiogram noted to have mild mitral prolapse, normal ejection fraction with no wall motion abnormalit y. ASSESSMENT/PLAN: 1. Palpitations with lightheadedness: Have reviewed pacemaker interrogation done in the emergency de partment, showing no high-rate heart rhythms and no mode switching suggesting atrial fibrillations. T he patient has been wearing a CardioNet monitor; I have reviewed strips, which show that occasionally patient does have elevated heart rate, up to 138 beats per minute, which were ventricular paced. Rev iewing with Dr. Hearn of electrophysiology services, the patient's primary EP, with both pacemaker and Holter monitoring results, it is felt that this is probably due to his rate response being too sensit mahesh, and potentially pacemaker-induced tachycardia. I have called the [employer] loss prevention representative, who w ill come in and reprogram to decrease closed-loop stimulation sensitivity, and did increase postventr icular atrial refractory period. 2. Left arm pain and tingling, shortness of breath: The patient has recently had an exercise treadmi ll testing done; it was discontinued early because of accelerated heart rate. Reviewing with Dr. Hearn, he has felt that potentially it was as above, pacemaker changes to be done. Concerning that the radha ent does has cardiac risk factors that include age, sex, hypertension, and family history of heart di sease, would like him to have a repeat testing done today. Instead of doing exercise treadmill, we wi ll schedule him for a Lexiscan myocardial perfusion imaging. The patient has had 2 normal troponin le vels. 3. History of atrial flutter and atrial tachycardia: The patient is currently AV paced on the monito r. He has been resumed on his home sotalol; he will continue on home-dosing of Xarelto for anticoagul ation. We will continue to monitor. 4. History of gastroesophageal reflux disease: The patient reports no gastrointestinal bleeds. He is continued on his home Carafate and proton-pump inhibitor. Thank you for this consultation. We will be glad to follow along with you. /[id number]/MODL
[2017-08-06] MEDS ORDERED: TEMAZEPAM 15 MG CAP PO PRN (17:07)
[2017-08-06] MEDS ORDERED: NITROGLYCERIN 0.4 MG BTL SL PRN (17:07)
--- NOTE | 2017-08-06 17:15 | CPR ---
[f rep st] NONINVASIVE CARDIAC PROCEDURE REPORT PROCEDURE: Lexiscan of Lexiscan MPI study INDICATION FOR PROCEDURE: Left arm pain and pressure, paced rhythm, abnormal exercise treadmill test ing. DESCRIPTION OF PROCEDURE: PRE: After obtaining informed consent, ensuring patient's n.p.o. status of caffeine for greater than 12 hours, patient was placed on electrocardiogram. Initial EKG showing AV paced, occasional premature ventricular contraction. The patient denies any chest pain, shortness of breath, or symptoms suggesting of ischemia. Initial blood pressure 142/70, heart rate 93% on room air . INJECTION: Patient was given Lexiscan slow IV push, followed by nuclear isotope. Patient reporting mi ld flushing sensation and shortness of breath within 1 minute of injection. Heart rate remained stabl e, no significant EKG changes, blood pressure 128/80. Within 5 minutes, the patient reported all symp toms subsided. Electrocardiogram showed A-paced with intrinsic ventricular response, showing left ant erior fascicular block, with inverted T-waves in V2 through V5. His vital signs remained stable. Vanessa frederick blood pressure 128/60. Saturation 96%. IMPRESSION: A 71-year-old male, reporting episode yesterday of palpitations, lightheadedness with l eft arm pressure and tingling in his left hand. Recent exercise treadmill testing was abnormal due to elevated heart rate, further evaluation for cardiac ischemia by Lexiscan MPI injection. Patient clare rated with mild symptoms of shortness of breath, with no significant electrocardiogram changes from [facility]. His vital signs are stable. He is finishing post MPI imaging in Nuclear Medicine at this on license of [facility]. /[id number]/MODL
[2017-08-06] MEDS: TAMSULOSIN HCL 0.4 MG CAP PO SCH (20:49)
[2017-08-07] MEDS ORDERED: FAMOTIDINE 20 MG TAB PO ONE ×2 (06:00→09:00)
[2017-08-07] MEDS ORDERED: ASPIRIN EC 325 MG TAB PO ONE ×2 (06:00→08:30)
[2017-08-07] MEDS ORDERED: DIAZEPAM 5 MG TAB PO ONE ×2 (06:00→09:00)
[2017-08-07] MEDS ORDERED: diphenhydrAMINE 25 MG CAP PO ONE ×2 (06:00→09:00)
[2017-08-07 06:34] LABS: % IMMATURE GRANULYOCYTES 0.4 % (0.0-1.1); ABSOLUTE IMMATURE GRANULOCYTES 0.02 10^3/uL (0.00-0.10); ADD DIFF? NO; ADD MORPH? NO; ADD SCAN? NO; ATYPICAL LYMPHOCYTE FLAG 10 (0-99); FRAGMENT RBC FLAG 0 (0-99); HEMATOCRIT 40.4 % (40.0-51.0); HEMOGLOBIN 14.1 g/dL (13.7-17.5); LEFT SHIFT FLG 0 (0-99); LIPEMIA HEMOLYSIS FLAG 90 (0-99); MEAN CELL HEMOGLOBIN 32.8 pg (27.9-34.1); MEAN CELL HEMOGLOBIN CONCENTR. 34.9 g/dL (32.4-36.7); MEAN PLATELET VOLUME 9.8 fL (8.7-11.7); PLATELET CLUMPS FLAG 10 (0-99); PLATELET COUNT 115 10^3/uL (150-400); RED CELL DISTRIBUTION WIDTH 13.4 % (11.5-15.2)
[2017-08-07 06:43] LABS: INR 1.2 (0.83-1.16); PROTIME(PATIENT) 15.2 SEC (12.0-15.0)
[2017-08-07 06:44] LABS: APTT 37.2 SEC (23.0-38.0)
[2017-08-07 06:49] LABS: ANION GAP 10 mEq/L (8-16); CARBON DIOXIDE 24 mEq/l (22-31); CHLORIDE 106 mEq/L (97-110); CHOLESTEROL 133 mg/dL (140-220); CREATININE 0.7 mg/dL (0.7-1.3); GLOMERULAR FILTRATION RATE > 60; GLUCOSE 88 mg/dL (70-100); HIGH DENSITY LIPOPROTEIN 35 mg/dL (40-65); LDL/HDL RATIO 2.23 RATIO (1.00-3.64); LOW DENSITY LIPOPROTEIN 78 mg/dL (80-100); MAGNESIUM 1.9 mg/dL (1.6-2.3); NON-HIGH DENSITY LIPOPROTEIN 98 mg/dL (90-129); POTASSIUM 3.9 mEq/L (3.5-5.2); SODIUM 140 mEq/L (134-144); TRIGLYCERIDE 102 mg/dL (40-150); VERY LOW DENSITY LIPOPROTEINS 20 mg/dL (8-25)
[2017-08-07] MEDS: ARIPiprazole 2 MG TAB PO SCH (08:49)
[2017-08-07] MEDS: MULTIVITAMINS 1 EACH TAB PO SCH (08:49)
[2017-08-07] MEDS: ASCORBIC ACID 500 MG TAB PO SCH (08:49)
[2017-08-07] MEDS: OMEGA-3 FATTY ACIDS 1,000 MG CAP PO SCH (08:49)
[2017-08-07] MEDS: SOTALOL HCL 80 MG TAB PO SCH (08:49)
[2017-08-07] MEDS: ESCITALOPRAM OXALATE 10 MG TAB PO SCH (08:50)
--- NOTE | 2017-08-07 09:01 | CPEKG ---
Heart Rate: 68 RR Interval: 882 P-R Interval: 308 QRSD Interval: 118 QT Interval: 452 QTC Interval: 481 P Nadeau: 102 QRS Nadeau: -72 T Wave Nadeau: 19 EKG Severity - ABNORMAL ECG - EKG Impression: AV paced EKG Impression: PVC Electronically Signed By: Kael Hearn 07-Aug-2017 15:12:03
--- NOTE | 2017-08-07 09:14 | ECHO ---
[id number] + + [address] : : [place] [address] : : [phone] + + Adult Echocardiographic Report + + :Name: SELIN HOWARD Study Date: 08/06/2017 11:52 AM : : Hospital Admission Number: [id number] : :: 1945 Gender: Male Height: 67 in : :Age: 71 yrs Race: WH Weight: 155 lb : :Reason For Study: Eval LV Fx : : BSA: 1.8 meters2: :History: Left Arm Tingling, H/O Ablation, pacemaker : + + MMode/2D Measurements & Calculations IVSd: 1.3 cm LVIDd: 4.7 cm FS: 34.3 % Ao root diam: 3.5 cm LVPWd: 1.3 cm LVIDs: 3.1 cm EDV(Teich): 103.2 ml ACS: 2.2 cm ESV(Teich): 37.9 ml EF(Teich): 63.3 % Normal Measurement Values: + + :LVIDd (3.5-5.7cm) IVSd (0.6-1.1cm) LVPWd (0.6-1.1cm) Aortic Root (2.0-3.7cm)Left Atrium (1.5-4.0cm): :LV Vol(d) (76-115ml) LV Vol(s) (29-48ml) Ejec Fraction (50-65%)PV Tj (0.6- 1.2m/s) TV Tj (0.4-1.0m/s) : :MV E Tj (0.8-1.0m/s)MV A Tj (0.3-1.0m/s)LVOT Tj (0.7-1.2m/s) Asc Ao Tj ( 0.9-1.8m/s) : + + Doppler Measurements & Calculations MV E max tj: Ao V2 max: LV V1 max: PA V2 max: 102.2 cm/sec 90.9 cm/sec 57.8 cm/sec 55.7 cm/sec Ao max P.3 mmHgLV V1 max PG: PA max P.3 mmHg 1.2 mmHg PI end-d tj: TR max tj: 70.6 cm/sec 224.0 cm/sec TR max P.1 mmHg RAP systole: 5.0 mmHg RVSP(TR): 25.1 mmHg Left Ventricle The left ventricle is normal in size. There is mild concentric left ventricular hypertrophy. The left ventricular ejection fraction is normal. There is Doppler evidence for diastolic dysfunction. Ejection Fraction = 65%. Ectopy noted during exam. Septal motion is consistent with conduction abnormality. Right Ventricle There is a pacemaker lead in the right ventricle. Atria The left atrial size is normal. Right atrial size is normal. Mitral Valve The mitral valve is normal in structure and function. There is mild mitral valve prolapse. There is no mitral valve stenosis. There is mild mitral regurgitation. Tricuspid Valve There is trace tricuspid regurgitation. Right ventricular systolic pressure is normal. Aortic Valve The aortic valve is normal in structure and function. The aortic valve is trileaflet. There is no aortic stenosis. There is no aortic insufficiency. Pulmonic Valve The pulmonic valve is normal in structure and function. Trace pulmonic valvular regurgitation. Great Vessels The aortic root is normal size. Pericardium/Pleural There is no pericardial effusion. Conclusion A complete two-dimensional transthoracic echocardiogram was performed (2D, M-mode, Doppler and color flow Doppler). There is mild concentric left ventricular hypertrophy. The left ventricular ejection fraction is normal. There is Doppler evidence for diastolic dysfunction. Ejection Fraction = 65%. Ectopy noted during exam. Septal motion is consistent with conduction abnormality. There is a pacemaker lead in the right ventricle. The left atrial size is normal. The mitral valve is normal in structure and function. There is mild mitral valve prolapse. There is mild mitral regurgitation. There is trace tricuspid regurgitation. Right ventricular systolic pressure is normal. The aortic valve is normal in structure and function. The aortic valve is trileaflet. The pulmonic valve is normal in structure and function. Trace pulmonic valvular regurgitation. The aortic root is normal size. There is no pericardial effusion. Final Reading Physician: Kael Hearn MD electronically signed on 08/07/2017 09:13 AM Ordering Physician: Newton Sheldon Performed By: Demarcus Oleary, [facility]
[2017-08-07] MEDS ORDERED: fentaNYL 100 MCG/2 ML INJ ONE (10:34)
[2017-08-07] MEDS ORDERED: MIDAZOLAM 2 MG/2 ML VIAL ONE (10:34)
[2017-08-07] MEDS ORDERED: IOPAMIDOL (ISOVUE-370) 150 ML BTL IV ONE (10:34)
[2017-08-07] MEDS ORDERED: LIDOCAINE 1% 300 MG/30 ML SDV ONE (10:34)
[2017-08-07] MEDS: Armodafinil [Nuvigil 250mg] 250 MG PO SCH (10:49)
--- NOTE | 2017-08-07 11:11 | PDHPUP ---
History & Physical Update H&P update statement: This history and physical update is based on an assessment of the patient which was completed after admission or registration (within 24 hours), but prior to the surgery/procedure. H&P update: H&P reviewed & patient examined, no change in patient's condition since H&P completed
--- NOTE | 2017-08-07 11:11 | PDPROPOC ---
Sedation Plan of Care Sedation Plan of Care: vital signs stable, mental status noted, patient educated of risks, benefits, alternatives, patient can tolerate sedation ASA Classification: ASA 2 Planned drugs: fentanyl, midazolam Mallampati Score: Class 2 Mallampati Reference Image: Patient passed 3-3-2 rule?: Yes
[2017-08-07] MEDS ORDERED: ATROPINE SULFATE 1 MG/10 ML SYR ONE (12:02)
--- NOTE | 2017-08-07 12:48 | CPIP ---
[f rep st] INVASIVE CARDIAC PROCEDURE DATE OF PROCEDURE: 08/07/2017 PROCEDURE: 1. Coronary angiography. 2. Left ventriculography. INDICATION: 1. Dyspnea on exertion, concerning for an anginal equivalent. 2. Abnormal nuclear stress test as intermediate risk. ACCESS: The patient was prepped and draped in sterile fashion. 1% lidocaine was used to anesthetize the right inguinal region. A 6-Luxembourger introducer sheath was placed selectively into the right commo n femoral artery via modified Seldinger technique. CORONARY ANGIOGRAPHY: A 6-Luxembourger JL4 was advanced to the left main coronary artery, and images obtai herb. The left main coronary artery trifurcated into the LAD, ramus, and circumflex coronary arteries . The left main coronary artery appeared normal. The left anterior descending coronary artery was d iffusely diseased in the proximal mid segments. In the mid segment, just after the takeoff of the di agonal artery, there is a single, discrete, 40% stenosis present. The diagonal artery is free of any significant disease. The ramus coronary artery was a moderate-sized vessel. The ramus coronary art fartun had mild diffuse disease throughout. There was no stenosis greater than 20%. The circumflex cor onary artery was relatively small. Circumflex coronary artery appeared normal. A 6-Luxembourger JR4 was a dvanced to the right coronary artery, and images obtained. The right coronary artery is dominant. T he right coronary artery is ectatically dilated in the proximal, mid, and distal segment. There is n o evidence of flow limitation. LEFT VENTRICULOGRAPHY: A 6-Luxembourger pigtail catheter was advanced into the left ventricle and images o btained. Left ventricle is normal size and normal systolic function. Estimated ejection fraction is 55%. There were no segmental wall motion abnormalities. COMPLICATIONS: None. CONCLUSIONS: 1. [id number]-mh-[id number] coronary artery disease without flow limitation. 2. Normal left ventricular size and systolic function. 3. Plan is for medical management. /[id number]/MODL
[2017-08-07] MEDS ORDERED: ONDANSETRON 4 MG/2 ML VIAL IVP PRN (12:52)
[2017-08-07] MEDS ORDERED: ATROPINE SULFATE 1 MG/10 ML SYR IVP PRN (12:52)
[2017-08-07 14:53] VITALS: TEMP 97.6
[2017-08-07 15:10] VITALS: RESP 12; O2SAT 92
--- NOTE | 2017-08-07 16:54 | PDCARPN ---
Cardiology Progress Note Chief Complaint: Patient reports he is very sedated from cardiac catheterization. Assessment/Plan: Assessment: 71-year-old male known history of atrial flutter, SVT with previous a flutter and AVNRT ablation, symptomatic bradycardia with remote ppm implantation, noticing over the last 3 months of having episodes of fatigue, dyspnea on exertion, and palpitations. Pacemaker interrogation done on day of admission ( showing no high ventricular rates, no mode switching. Had patient has been wearing a CardioNet, which shows several episodes rapid ventricular pacing. Reviewed with Dr. Hearn, felt this was pacemaker induced tachycardia. [employer] rep came in yesterday and interrogated device, decreasing sensitivity to CLS, and increasing PVARP. Echocardiogram done on 08/06 showed mild concentric LVH, EF 65% evidence of diastolic dysfunction, mild MR, trace TR, mild [place], RVSP within normal limits. MPI study done on 08/06 showing normal LVEF of 60%, no focal wall motion abnormalities, moderate inferior lateral fixed myocardial deficit suggesting old infarct, no evidence of reversible ischemia. Today, patient has had no further episodes of ventricular paced tachycardia noted on continuous electrocardiogram. Reports no further episodes of palpitations or lightheadedness. Cardiac catheterization done by Dr. Anne due to abnormal stress test and dyspnea on exertion, showing nqaa-sz-ihnaidic coronary artery disease without flow limitation, normal LV size and systolic function. Fasting lipid panel showing triglycerides 102, total cholesterol 133 , LDL 78, HDL 35. Plan: 1. Palpitations: None further during hospital admission. On continuous telemetry monitoring no tachyarrhythmia noted. Pacemaker changes as mentioned above. 2. Lightheadedness: More likely due to elevated heart rates, no further episodes since PPM programming changes. 3. CAD: Non flow limiting off coronary angiogram, patient on sotalol for beta- carlos, will hold off aspirin therapy due to being on Xarelto history of a flutter. Started on statin therapy, will need to have a fasting lipid and liver panel done in 6-8 weeks to evaluate therapy. 4. History of atrial flutter an atrial tachycardia: None seen on continuous cardiac monitoring. Continue on home dose of sotalol. Remained will restart Xarelto tomorrow morning 24 hours post catheterization. Patient is planned to be discharged later this evening, will have office call and make an appointment for him to be seen in office in the next 7-10 days. Post cardiac catheterization discharge instructions went over with the patient and his , they both verbalize understanding. 08/07/17 16:53 Subjective: Patient denies of any chest pressure, pain, palpitations, lightheadedness, near-syncope or syncopal events. Reviewed/Discussed With: family (Patient ), hospitalist (Dr Sheldon), other (Dr Anne) Objective: Vital Signs (8 Hrs) Temp Pulse Resp BP Pulse Ox 08/07/17 15:08 69 12 124/80 H 92 08/07/17 13:30 36.4 C 69 16 155/86 H 96 Intake/Output (24 Hrs) 08/06/17 08/07/17 08/08/17 05:59 05:59 05:59 Intake Total 300 Balance 300 Intake: Oral (ml) 300 Other: Intake Quantity Yes Sufficient Number of Voids Toilet 2 Result Diagrams: 08/07/17 06:15 08/07/17 06:15 - Physical Exam Constitutional: healthy appearing Ears, Nose, Mouth, Throat: moist mucous membranes Cardiovascular: regular rate and rhythm, no murmurs, No jugular vein distention , No carotid bruit Peripheral Pulses: 1+: dorsalis-pedis (R), dorsalis-pedis (L) Respiratory: clear to auscultate bilat, no wheezes Skin: warm Neurologic: AAOx3 Psychiatric: cooperative, interactive, following commands ICD10 Worksheet Patient Problems: Problems Problem Status Onset Atrial fibrillation and flutter Active Dyspnea on exertion Acute Palpitations Acute
[2017-08-07 17:29] VITALS: BP 119/68; PULSE 63
--- NOTE | 2017-08-07 23:10 | GDS ---
[f rep st] DISCHARGE SUMMARY KNOWN ACUTE DIAGNOSES ON THIS ADMISSION: 1. Acute chest pain, noncardiac in origin, probably related to changes in rhythm. 2. Atrial fibrillation and flutter with good rate control. 3. AV sequential pacemaker in place. 4. Anticoagulation, on Xarelto. CHRONIC DIAGNOSES: 1. Benign prostatic hypertrophy. 2. Gastroesophageal reflux disease. 3. Depression. 4. Back pain. CONSULTATIONS: Cardiology. PROCEDURES: 1. Echocardiogram showing EF of 65%. Pacemaker leads in place. Left atrium of normal size. Mitral valve normal structure. Mild mitral prolapse and mild mitral regurgitation. 2. Lexiscan MPI study showing attenuation on the inferior border suggestive of a fixed defect, possi malik ischemia. 3. Coronary angiography with left ventriculography showing mild to moderate coronary artery disease without flow limitation and normal left ventricular size and systolic function. HOSPITAL COURSE: This is a 71-year-old male, who presented with a complaint of chest pain. He had h ad a prior ablation and a pacemaker placed and was noted to have episodes of weakness, dizziness, and near syncope, along with some chest pain. Cardiac biomarkers were negative. His BNP was normal. C holesterol panel showed that his cholesterol was low at 133 with an LDL calculated cholesterol of 78. A Lexiscan was performed suggesting attenuation on the inferior border and a possible ischemic area . Thus, coronary artery angiography was performed through the right groin with findings of mild to m oderate coronary artery disease without any flow-limiting lesions. Thus, it is likely that the page bolivar's weakness and dizziness were related to pacemaker function and the sequencing of his AV pacemak er. The matters have been explained to the and discussed with JOSEPHINE Looney, for [facility]. DISCHARGE MEDICATIONS: New medications are nitroglycerin 0.4 sublingual q.5 minutes p.r.n. chest nichelle n, #30; Lipitor 10 mg p.o. daily. His continued medications are vitamin C 500 mg; omega-3 fatty acid s 1000 mg b.i.d.; multivitamin daily; Lexapro 10 mg daily; Abilify 2 mg daily; Nuvigil 250 mg daily; sotalol 120 mg b.i.d.; Flomax 0.8 mg p.o. q.h.s.; Xarelto 20 mg h.s.; Remicade injection on a q.56 da y schedule; sucralfate 1 g p.o. daily p.r.n. gastritis; herbal supplementation; and Protonix 40 mg ev fartun third day. PLAN: Nubia will follow up with Dr. Kael Hearn in approximately 1 week with instructions from Ca rdiology as to not to lift more than 5-10 pounds for the next 3 weeks. He will also see his PCP, Dr. Cornelius Adams, on a p.r.n. basis. TIME: This discharge required 40 minutes, greater than 50% to educational guidance counselor and coordinate care. /[id number]/MODL
[2017-08-08] MEDS ORDERED: PANTOPRAZOLE SODIUM 40 MG TAB PO SCH (08:00)
[2017-08-08] MEDS ORDERED: ATORVASTATIN CALCIUM 10 MG TAB PO SCH (09:00)
--- NOTE | 2017-08-08 15:34 | ASDISCHSUM ---
Discharge Information Plan Status:Home with No Needs Medically Cleared to Leave: Discharge Date:08/07/2017 06:31 PM CM D/C Disposition:Home, Routine, Self-Care ADT D/C Disposition:Home, Routine, Self-Care Projected Discharge Date:08/07/2017 06:31 PM Transportation at D/C:Self Discharge Delay Reason: Follow-Up Date:08/07/2017 06:31 PM Discharge Slot: Final Diagnosis: Placement Information Patient Contact Information Contact Name:ABDI Relationship: Address:[address] [place] Alternate Phone: [facility]/Zip Code:[place] [address] Email: Financial Information Financial Class: Primary Plan Desc:MEDICARE INPATIENT Primary Plan Number:[id number] Secondary Plan Desc:MIKE PPO Secondary Plan Number:[id number] Assessment Information [facility] CM Progress Note CM Note CM Note Notes: 08/06/2017 Case Management Note: Reviewed chart, spoke w/RN. No case management d/c needs identified d/t pt age and activity level prior to admission and lack of therapy evals ordered. Case Management d/c poc: Home independent when medically stable. Case Management available if needs change. Date Signed: 08/06/2017 04:35 PM Electronically Signed By:Maia Bella RN Intervention Information Intervention Type:*Incorrect Registration Date of Service:08/05/2017 01:10 PM Patient Type:Observation Staff Member:Sangeeta Ellison Hours:0.25 Discipline: Severity:1 (0-1 Hours) Comment:Registered inpatient, admit order writ ten for observation status. Intervention Type:*HUA-Signed Date of Service:08/06/2017 09:25 AM Patient Type:Observation Staff Member:Radha Almonte Hours: Discipline: Severity: Comment:
== END 2017-08-07 18:31 | disposition home or self-care (01) | DRG 287 ==
LOC: INTOOBSV 12:43 → F2W 13:40 → OBSVTOIN 08-06 17:05
PROVIDERS: ADMIT Internal Medicine; ATTEND Internal Medicine
PROC: 4A023N7 Measurement of Cardiac Sampling and Pressure, Left Heart, Percutaneous Approach (ICD-10-PCS; principal; 2017-08-06)
PROC: B2111ZZ Fluoroscopy of Multiple Coronary Arteries using Low Osmolar Contrast (ICD-10-PCS; principal; 2017-08-06)
PROC: B2151ZZ Fluoroscopy of Left Heart using Low Osmolar Contrast (ICD-10-PCS; principal; 2017-08-06)
DX: R07.89 Other chest pain (principal); R42 Dizziness and giddiness; I48.91 Unspecified atrial fibrillation; I48.92 Unspecified atrial flutter; I25.10 Atherosclerotic heart disease of native coronary artery without angina pectoris; N40.0 Benign prostatic hyperplasia without lower urinary tract symptoms; Z95.0 Presence of cardiac pacemaker; Z79.01 Long term (current) use of anticoagulants
CPT/HCPCS: A9500; G0378; J0461; J1644; J2250; J2785; J3010; Q9967

== ENCOUNTER → 2017-11-29 | Outpatient (CLI) | payer OTHER | LOC: GIMAGING 12:39 | PROVIDERS: ATTEND Registered Nurse | DX: M53.3 Sacrococcygeal disorders, not elsewhere classified (principal); M51.37 Other intervertebral disc degeneration, lumbosacral region; S22.080A Wedge compression fracture of T11-T12 vertebra, initial encounter for closed fracture; S32.010A Wedge compression fracture of first lumbar vertebra, initial encounter for closed fracture | CPT/HCPCS: 72100-PO; 72220-PO ==

== ENCOUNTER → 2018-01-21 | Outpatient (CLI) | payer OTHER ==
[~2018-01-21] MED LIST changes: +IOPAMIDOL (ISOVUE 370) 100 ML BTL IV ONE; -IOPAMIDOL (ISOVUE-M 200) 20 ML VIAL IV ONE; -LIDOCAINE 1% 30 ML SDV ONE; +LIDOCAINE 1% 300 MG/30 ML SDV ONE; -NA BICARBONATE 50 MEQ/50 ML VIAL ONE
== END ==
LOC: FIMAGING 09:57
PROVIDERS: ATTEND Orthopaedic Surgery Hand Surgery
DX: S63.8X1A Sprain of other part of right wrist and hand, initial encounter (principal); S63.591A Other specified sprain of right wrist, initial encounter; M19.011 Primary osteoarthritis, right shoulder
CPT/HCPCS: 73115; 73201; Q9967

== ENCOUNTER 2018-01-29 05:46 | Day surgery (SDC) | payer OTHER ==
[2018-01-29] MEDS ORDERED: LIDOCAINE 1% 2 ML INJ ID PRN (06:08)
[2018-01-29] MEDS ORDERED: LR 1,000 ML IV ONE (06:08)
[2018-01-29 06:17] VITALS: PULSE 80
[2018-01-29] MEDS ORDERED: ceFAZolin 2 GM/SWFI 2 GM/20 ML SYR IVP ONE (06:53)
--- NOTE | 2018-01-29 06:56 | PDHPUP ---
History & Physical Update H&P update statement: This history and physical update is based on an assessment of the patient which was completed after admission or registration (within 24 hours), but prior to the surgery/procedure. RRR CTAB
--- NOTE | 2018-01-29 07:08 | PDANEPAE ---
ANE Past Medical History - Cardiovascular History Hx Hypertension: No Hx Arrhythmias: Yes Hx Chest Pain: No Hx Coronary Artery / Peripheral Vascular Disease: Yes Hx CHF / Valvular Disease: No Cardiovascular History Comment: ATRIAL FIBRILLATION. ATRIAL TACHYCARDIA - Pulmonary History Hx COPD: No Hx Asthma/Reactive Airway Disease: No Hx Recent Upper Respiratory Infection: No Hx Oxygen in Use at Home: No Hx Sleep Apnea: Yes Sleep Apnea Screening Result - Last Documented: Positive - Neurologic History Hx Cerebrovascular Accident: No Hx Seizures: No Hx Dementia: No - Endocrine History Hx Diabetes: No - Renal History Hx Renal Disorders: Yes Renal History Comment: RECURRENT KIDNEY STONES WHEN YOUNGER - Liver History Hx Hepatic Disorders: No - Neurological & Psychiatric Hx Hx Neurological and Psychiatric Disorders: No - Cancer History Hx Cancer: No Cancer History Comment: BASAL CELL REMOCED - Congenital Disorder History Hx Congenital Disorders: No - GI History Hx Gastrointestinal Disorders: No Gastrointestinal History Comment: OCCAS STOMACH ACID PROBLEMS - Other Health History Other Health History: PERTHES DISEASE - CHILDHOOD - Chronic Pain History Chronic Pain: Yes (lower back) - Surgical History Prior Surgeries: PACEMAKER IMPLANT. CARDIAC ABLATION X3. TONSILLECTOMY & ADENOIDECTOMY. ANGIOGRAM - NO STENTS. BUNIONECTOMY L. FOOT SURG BRIAN X5. KNEE R X2 MENISCUS. WRIST SURG R X2. KIDNEY STONES ANE Review of Systems Review of Systems: - Exercise capacity METS (RN): 6 METS - Pacemaker Pacemaker Type: Permanent Pacer/Defib Pacemaker Shredder Tender Peat: ThinAir Wireless Date Pacemaker Last Checked: 12/12/17 ANE Patient History - Allergies Allergies/Adverse Reactions: ENVIRONMENTAL Allergy (Mild, Uncoded 07/05/13 14:35) Other-Enter Comments - Home Medications Home Medications: ARIPiprazole [Abilify 2 mg (*)] 2 mg PO DAILY 01/29/13 [Last Taken 01/28/18] Ascorbic Acid [Vitamin C 500 mg (*)] 500 mg PO BID 01/29/13 [Last Taken 01/28/18 ] Escitalopram Oxalate [Lexapro 10 MG] 10 mg PO DAILY 01/29/13 [Last Taken ] Multivitamins [Multivitamin (*)] 1 tab PO DAILY 01/29/13 [Last Taken 01/28/18] [place]-3 Fatty Acids [Fish Oil 1000 mg (*)] 1,000 mg PO BID 01/29/13 [Last Taken 01/28/18] Armodafinil [Nuvigil 250mg] 250 mg PO DAILY 07/04/13 [Last Taken 01/28/18] Rivaroxaban [Xarelto] 20 mg PO HS 02/12/17 [Last Taken 01/25/18] Sotalol HCl [Sotalol] 120 mg PO BID 02/12/17 [Last Taken 01/28/18] Tamsulosin HCl [Flomax 0.4 MG (*)] 0.8 mg PO HS 02/12/17 [Last Taken 01/28/18] Herbals/Supplements -Info Only 1 ea PO DAILY 08/05/17 [Last Taken 01/28/18] inFLIXimab [Remicade Inj 100 mg (*)] 0 mg IV Q56D 08/05/17 [Last Taken 06/25/17] Aspirin 81mg (*) 01/28/18 [Last Taken 01/25/18] - NPO status NPO Since - Liquids (Date): 01/28/18 NPO Since - Liquids (Time): 22:00 NPO Since - Solids (Date): 01/28/18 NPO Since - Solids (Time): 19:00 - Smoking Hx Smoking Status: Never smoked - Family Anes Hx Family Hx Anesthesia Complications: NEG ANE Labs/Vital Signs - Vital Signs Blood Pressure: 142/66 Heart Rate: 80 Respiratory Rate: 16 O2 Sat (%): 92 Height: 172.72 cm Weight: 72.575 kg ANE Physical Exam - Airway Neck exam: FROM Mallampati Score: Class 2 Mouth exam: normal dental/mouth exam - Pulmonary Pulmonary: no respiratory distress - Cardiovascular Cardiovascular: regular rate and rhythym - ASA Status ASA Status: II ANE Anesthesia Plan Anesthesia Plan: GA w LMA
[2018-01-29] MEDS ORDERED: LIDOCAINE 2% 100 MG/5 ML SYR ONE (07:12)
[2018-01-29] MEDS ORDERED: fentaNYL 100 MCG/2 ML INJ ONE ×2 (07:12→08:06)
[2018-01-29] MEDS ORDERED: KETOROLAC 30 MG/1 ML SDV ONE (07:12)
[2018-01-29] MEDS ORDERED: DEXAMETHASONE 4 MG/ML VIAL ONE (07:12)
[2018-01-29] MEDS ORDERED: PROPOFOL 200 MG/20 ML VIAL ONE (07:12)
[2018-01-29] MEDS ORDERED: BUPIVACAINE 0.5% 10 ML SDV ONE (07:18)
[2018-01-29] MEDS ORDERED: LIDOCAINE 1% 300 MG/30 ML SDV ONE (07:18)
--- NOTE | 2018-01-29 09:43 | POSTOPPROG ---
Post Op Note Date of Operation: 01/29/18 Surgeon: Sekou Cornelius Monotype Operator: Sammie Piedra PA-C Anesthesia: GET(General Endotracheal) Pre-op Diagnosis: right wrist SLAC wrist, TFCC tear Post-op Diagnosis: right wrist SLAC wrist, TFCC tear Procedure: right wrist arthroscopy with TFCC debridement, PRC Inf/Abcess present in the surg proc area at time of surgery?: No EBL: Minimal
[2018-01-29] MEDS ORDERED: ALBUTEROL 3 ML DEYVIAL IH PRN (09:48)
[2018-01-29] MEDS ORDERED: ACETAMINOPHEN 500 MG TAB PO PRN (09:48)
[2018-01-29] MEDS ORDERED: fentaNYL 100 MCG/2 ML INJ IVP PRN (09:48)
[2018-01-29] MEDS ORDERED: HYDROCODONE/APAP 5/325 TAB PO PRN (09:48)
[2018-01-29] MEDS ORDERED: NALOXONE HCL 0.4 MG/ML INJ IVP PRN (09:48)
--- NOTE | 2018-01-29 09:51 | POSTANESTH ---
Post Anesthetic Evaluation Cardiovascular Status: Similar to Pre-Op Cond Respiratory Status: Similar to Pre-op Cond. Level of Consciousness/Mental Status: Mildly Sleepy, Arousable Pain Control: Adequate, Prn Tx Ordered Nausea/Vomiting Control: Adequate, Prn Tx Ordered Complications Possibly Related to Anesthesia: None Noted
[2018-01-29 10:54] VITALS: RESP 11; TEMP 98.1
[2018-01-29] MEDS ORDERED: OXYCODONE/APAP 5/325 TAB ONE ×2 (10:57→13:13)
[2018-01-29] MEDS: OXYCODONE/APAP 5/325 TAB PO PRN ×2 (10:58→13:14)
[2018-01-29 12:15] VITALS: O2SAT 95
[2018-01-29 13:27] VITALS: BP 113/55
--- NOTE | 2018-01-30 06:32 | GOP ---
[f rep st] OPERATIVE REPORT DATE OF OPERATION: 01/30/2018 SURGEON: Sekou Cornelius MD TIRE CHANGER: Sammie Piedra PA-C PREOPERATIVE DIAGNOSIS: 1. Right wrist triangular fibrocartilage complex tear. 2. Right wrist scapholunate advanced collapse arthritis. POSTOPERATIVE DIAGNOSIS: 1. Right wrist triangular fibrocartilage complex tear. 2. Right wrist scapholunate advanced collapse arthritis. PROCEDURE PERFORMED: 1. Right wrist arthroscopy with triangular fibrocartilage complex debridement. 2. Right wrist proximal row carpectomy. 3. Right wrist radial styloidectomy. 4. Right wrist posterior interosseous nerve neurectomy. FINDINGS: ESTIMATED BLOOD LOSS: 1 cc. DESCRIPTION OF PROCEDURE: This is a very pleasant 72-year-old male who underwent a right wrist with TFCC debridement, followed by a right wrist proximal row carpectomy, radial styloidectomy, and marketing specialist ior interosseous nerve neurectomy. COMPLICATIONS: None. IMPLANTS: None. TOURNIQUET TIME: 88 minutes at 250 mmHg. /[id number]/MODL
== END 2018-01-29 13:38 | disposition home or self-care (01) ==
LOC: FSGY 05:46
PROVIDERS: ATTEND Orthopaedic Surgery Hand Surgery
PROC: 01B Peripheral Nervous System, Excision (ICD-10-PCS; principal; 2018-01-29 07:15)
PROC: 0PB Upper Bones, Excision (ICD-10-PCS; principal; 2018-01-29 07:15)
PROC: 0PB Upper Bones, Excision (ICD-10-PCS; principal; 2018-01-29 07:15)
PROC: 0MB54ZZ Excision of Right Wrist Bursa and Ligament, Percutaneous Endoscopic Approach (ICD-10-PCS; principal; 2018-01-29 07:15)
DX: S63.511A Sprain of carpal joint of right wrist, initial encounter (principal); M19.231 Secondary osteoarthritis, right wrist; M24.131 Other articular cartilage disorders, right wrist; G47.30 Sleep apnea, unspecified; I48.91 Unspecified atrial fibrillation; F32.9 Major depressive disorder, single episode, unspecified; Z79.01 Long term (current) use of anticoagulants; Z87.440 Personal history of urinary (tract) infections; Z87.442 Personal history of urinary calculi; Z95.0 Presence of cardiac pacemaker
CPT/HCPCS: J0690; J1100; J1885; J2001; J2704; J3010

== ENCOUNTER → 2018-04-08 | Outpatient (CLI) | payer OTHER | LOC: BHFA 08:30 | PROVIDERS: ATTEND Internal Medicine Cardiovascular Disease | DX: I25.10 Atherosclerotic heart disease of native coronary artery without angina pectoris (principal) ==

== ENCOUNTER → 2018-07-24 | Outpatient (CLI) | payer OTHER | LOC: BMCIMAGING 15:50 | PROVIDERS: ATTEND Internal Medicine Rheumatology | DX: M79.605 Pain in left leg (principal); M71.22 Synovial cyst of popliteal space [Baker], left knee ==

== ENCOUNTER 2018-07-27 22:12 | Inpatient (IN) | payer OTHER ==
--- NOTE | 2018-07-27 22:48 | EDPHY ---
H & P Stated Complaint: jack legs swelling and pain Time Seen by Provider: 07/27/18 22:45 HPI/ROS: HPI CHIEF COMPLAINT: Bilateral lower extremity swelling and pain, worse on the left leg than right leg HISTORY OF PRESENT ILLNESS: This is a very pleasant 72-year-old male, he is on Eliquis, history of atrial flutter and a pacemaker, additionally history of psoriatic arthritis. He presents emergency room with close to 2 weeks of left leg pain however it got progressively worse over the last 24-48 hours. He did see his timber faller on Sunday and had blood work and ultrasound that showed a ruptured Barton cyst of the left leg. However additionally started complaining of right leg pain and swelling. The patient now has bilateral lower extremity swelling and pain mainly in his calves worse on his left leg than right leg. No fever. No direct trauma. The pain got worse this evening so decided come the emergency room describes 9/ 10 pain. Worse left leg than the right leg.. Patient is held his Eliquis for 2 days. He has been taking aspirin. Past Medical History: Atrial flutter, pacemaker, on Eliquis. Past Surgical History: No recent surgery however left chest pacemaker. Social History: Denies current use of drugs alcohol tobacco. Family History: Noncontributory ROS REVIEW OF SYSTEMS: 10 Systems were reviewed and negative with the exception of the elements mentioned in the history of present illness. Exam Constitutional nontoxic no acute distress, triage nursing summary reviewed, vital signs reviewed, awake/alert. Vital signs stable Eyes normal conjunctivae and sclera, EOMI, PERRLA. HENT normal inspection, atraumatic, moist mucus membranes, no epistaxis, neck supple/ no meningismus, no raccoon eyes. Respiratory clear to auscultation bilaterally, normal breath sounds, no respiratory distress, no wheezing. Cardiovascular rate normal, regular rhythm, no murmur, no edema, distal pulses normal. Gastrointestinal soft, non-tender, no rebound, no guarding, normal bowel sounds, no distension, no pulsatile mass. Genitourinary no CVA tenderness. Musculoskeletal bilateral lower extremity swelling bilaterally, worse on the left leg than right, the left calf is tense but not rock hard, there is a good distal pulse of the left leg, good cap refill, no signs of compartment syndrome. Right leg is soft, however mildly swollen, he has fullness and tenderness bilaterally in the posterior popliteal space. Both legs are neurovascular intact good distal pulses. Good cap refill. Warm extremities. No redness. No significant rash. no midline vertebral tenderness, full range of motion, no calf swelling, no tenderness of extremities, no meningismus, good pulses, neurovascularly intact. Skin pink, warm, & dry, no rash, skin atraumatic. Neurologic awake, alert and oriented x 3, AAOx3, moves all 4 extremities equally, motor intact, sensory intact, CN II-XII intact, normal cerebellar, normal vision, normal speech. Psychiatric normal mood/affect. Heme/Lymph/Immune no lymphadenopathy. Differential Diagnosis: Includes but is not limited to in a particular order ruptured Barton cyst bilaterally, DVT, compartmental bleeding, leg bleeding Medical Decision Making: Plan for this patient IV establishment blood draw, check CK, basic blood work, ultrasound bilateral lower extremity, IV establishment with pain control. Re-evaluate. Re-evaluation: Bilateral lower extremity ultrasounds show no evidence of DVT but do have calf hematomas bilaterally. 0100AM: Updated patient on results. Recommend admission overnight for pain control and observation to make sure his calf swelling does not get worse. Additionally ice packs. Additionally leg elevation. Patient is comfortable this plan. I have asked the hospitalist service to admit him Dr. Brannon. 0100: I did re-evaluate his scans. There firm but not rock hard. No numbness or tingling good distal pulses. No evidence of compartment syndrome on exam. 0307: I did go reexamine the patient. He is complaining worsening left calf pain. I have consult Orthopedics to see and evaluate him for possible early compartment syndrome. Spoke with Dr. Holder 0406: Dr. Troy has seen and evaluated the patient. Believes he has early compartment Syndrome. Will take to OR for release. Source: Patient - Personal History Tetanus Vaccine Date: unsure - Medical/Surgical History Hx Asthma: No Hx Chronic Respiratory Disease: No Hx Diabetes: No Hx Cardiac Disease: Yes Hx Renal Disease: No Hx Cirrhosis: No Hx Alcoholism: No Hx HIV/AIDS: No Hx Splenectomy or Spleen Trauma: No Other PMH: pacemaker/a flutter-ablation tx. rotator cuff injury (pulled bone fragment). tonsillectomy. multiple on feet and ankles, r knee,r wrist. - Social History Smoking Status: Never smoked Constitutional: Initial Vital Signs Temperature (C) 36.4 C 07/27/18 22:28 Heart Rate 84 07/27/18 22:28 Respiratory Rate 18 07/27/18 22:28 Blood Pressure 119/67 07/27/18 22:28 O2 Sat (%) 96 07/27/18 22:28 O2 Delivery Mode Room Air Allergies/Adverse Reactions: ENVIRONMENTAL Allergy (Mild, Uncoded 07/05/13 14:35) Other-Enter Comments Home Medications: Medication Instructions Recorded Apixaban [Eliquis] 5 mg PO BID 07/28/18 Armodafinil [Nuvigil 250mg] 250 mg PO DAILY 07/28/18 Aspirin [Aspirin 81mg (*)] 81 mg PO DAILY 07/28/18 Escitalopram Oxalate [Lexapro] 10 mg PO DAILY 07/28/18 [place]-3 Fatty Acids [Fish Oil 1000 1,000 mg PO BID 07/28/18 mg (*)] Sotalol HCl [Sotalol] 120 mg PO BID 07/28/18 Tamsulosin HCl [Flomax 0.4 MG (*)] 0.4 mg PO HS 07/28/18 inFLIXimab [Remicade Inj 100 mg 100 mg IV Q56D 07/28/18 (*)] Medical Decision Making - Data Points Laboratory Results: Laboratory Results 07/28/18 05:55 07/27/18 23:10 Medications Given: Hydrocodone Bitart/Acetaminophen ([place] 5/325) 1 - 2 tab PO Q4HRS PRN PRN Reason: Pain, Moderate Able to Take PO Stop: 08/07/18 01:06 Last Admin: 07/29/18 13:43 Dose: 2 tab Sodium Chloride (Ns) 1,000 mls @ 75 mls/hr IV CONT MEMO Stop: 01/24/19 01:14 Last Admin: 07/28/18 22:09 Dose: 1,000 mls Morphine Sulfate (Morphine) 1 - 2 mg IVP Q1HR PRN PRN Reason: Pain, Breakthrough Stop: 08/07/18 01:06 Last Admin: 07/28/18 22:17 Dose: 1 mg [place]-4-Useu Ethyl Esters (Fish Oil) 1,000 mg PO BID MEMO Stop: 01/25/19 20:59 Last Admin: 07/29/18 20:25 Dose: 1,000 mg Oxycodone HCl (Oxycodone Ir) 5 - 10 mg PO Q4HRS PRN PRN Reason: Pain, Severe Able to Take PO Stop: 08/07/18 07:44 Last Admin: 07/29/18 21:05 Dose: 10 mg Polyethylene Glycol (Miralax) 17 gm PO DAILY PRN; Protocol PRN Reason: Constipation, patient prefers Stop: 01/24/19 21:51 Last Admin: 07/29/18 17:03 Dose: 17 gm Senna/Docusate Sodium (Senokot-S) 1 - 2 tab PO BID MEMO PRN Reason: Protocol Stop: 01/24/19 21:59 Last Admin: 07/29/18 20:25 Dose: 2 tab Sotalol HCl (Betapace) 120 mg PO BID [facility] Stop: 01/25/19 11:14 Last Admin: 07/29/18 20:25 Dose: 120 mg Tamsulosin HCl (Flomax) 0.4 mg PO HS [facility] Stop: 01/25/19 20:59 Last Admin: 07/29/18 20:25 Dose: 0.4 mg Discontinued Medications Bupivacaine HCl (Sensorcaine 0.5% Vial) Confirm Administered Dose 30 ml .ROUTE .STK-MED ONE Stop: 07/28/18 06:30 Last Admin: 07/28/18 07:17 Dose: 20 ml Cefazolin Sodium (Ancef) Confirm Administered Dose 1 gm .ROUTE .STK-MED ONE Stop: 07/28/18 06:21 Last Admin: 07/28/18 06:32 Dose: 1 gm Cefazolin Sodium (Ancef) Confirm Administered Dose 1 gm .ROUTE .STK-MED ONE Stop: 07/28/18 06:21 Last Admin: 07/28/18 06:34 Dose: 1 gm Fentanyl (Sublimaze) 50 mcg IVP EDNOW ONE Stop: 07/27/18 23:05 Last Admin: 07/27/18 23:15 Dose: 50 mcg Fentanyl (Sublimaze) 50 mcg IVP EDNOW ONE Stop: 07/28/18 01:30 Last Admin: 07/28/18 01:34 Dose: 50 mcg Sodium Chloride (Ns) 500 mls @ 0 mls/hr IV ONCE ONE PRN Reason: Wide Open Stop: 07/27/18 23:06 Last Admin: 07/27/18 23:16 Dose: 500 mls Departure - Departure Disposition: [facility] Inpatient Acute Clinical Impression: Leg hematoma Qualifiers: Encounter type: initial encounter Laterality: unspecified laterality Qualified Code(s): S80.10XA - Contusion of unspecified lower leg, initial encounter Compartment syndrome Qualifiers: Compartment syndrome type: non-traumatic Compartment syndrome location: lower extremity Laterality: unspecified laterality Qualified Code(s): M79.A29 - Nontraumatic compartment syndrome of unspecified lower extremity Condition: Fair
[2018-07-27] MEDS ORDERED: fentaNYL 100 MCG/2 ML INJ IVP ONE (23:04)
[2018-07-27] MEDS ORDERED: NS 500 ML IV ONE (23:05)
[2018-07-27 23:21] LABS: PLATELET COUNT 170 10^3/uL (150-400)
[2018-07-27 23:28] LABS: INR 1.15 (0.83-1.16); PROTIME(PATIENT) 14.9 SEC (12.0-15.0)
[2018-07-27 23:35] LABS: CREATINE KINASE 65 IU/L (0-224)
[2018-07-28] MEDS ORDERED: ACETAMINOPHEN 325 MG TAB PO PRN (01:07)
[2018-07-28] MEDS ORDERED: ONDANSETRON 4 MG/2 ML VIAL IVP PRN (01:07)
[2018-07-28] MEDS ORDERED: LORazepam 2 MG/ML INJ IVP PRN (01:07)
[2018-07-28] MEDS ORDERED: fentaNYL 100 MCG/2 ML INJ ONE (01:28)
[2018-07-28] MEDS ORDERED: fentaNYL 100 MCG/2 ML INJ IVP ONE (01:29)
[2018-07-28 01:40] LABS: PLATELET COUNT 159 10^3/uL (150-400)
[2018-07-28] MEDS ORDERED: PROPOFOL 200 MG/20 ML VIAL ONE (05:39)
[2018-07-28] MEDS ORDERED: ROCURONIUM 50 MG/5 ML VIAL ONE (05:39)
[2018-07-28] MEDS ORDERED: DEXAMETHASONE 4 MG/ML VIAL ONE (05:39)
--- NOTE | 2018-07-28 06:01 | PDGENHP ---
History and Physical - Chief Complaint Left greater than right leg pain and swelling - History of Present Illness Source-patient provides history appears reliable. EMR was reviewed and case discussed with ED provider. HPI - this is a very pleasant 72-year-old gentleman with past medical history significant for atrial flutter status post pacer on chronically on Eliquis recently changed from Xarelto in the last several weeks, psoriatic arthritis on Remicade, depression, GERD, degenerative disc disease of chronic back pain and BPH who presents emergency department today with complaints of acute on ongoing left lower extremity pain and swelling. Patient reports approximately 2 weeks ago he noticed that he had some posterior left knee pain that showed signs of extension down into his calf. He was seen by his network associate who ordered an ultrasound that showed a ruptured Barton cyst at that time. Patient subsequently noticed he had similar pains developed on the right side over the this last several days and after consideration he held his Eliquis on for the last 2 days. Patient has had increasing swelling in his left calf and right lower leg pain. Initially with the a sudden onset of the base versus patient initially reported that walking did improve his symptoms however yesterday evening while on getting ready to go to bed patient reported that he was not sure he could get comfortable in his pain and swelling were worsening so he presented to the emergency department for evaluation. Patient currently reports that he has since developed some numbness tingling to the dorsum of his left distal foot. He has continued to have good pulses but increasing swelling in his left calf. Ultrasound of the lower extremities revealed that patient has expanding hematoma the bilateral proximal lower legs as well as ruptured Barotn cyst. Dr. Troy with Orthopedics is consulted on from the emergency department has evaluated the patient plans taken to the OR this morning for compartment syndrome. History Information - Allergies/Home Medication List Allergies/Adverse Reactions: ENVIRONMENTAL Allergy (Mild, Uncoded 07/05/13 14:35) Other-Enter Comments Home Medications: ARIPiprazole [Abilify 2 mg (*)] 2 mg PO DAILY 01/29/13 [Last Taken 01/28/18] Ascorbic Acid [Vitamin C 500 mg (*)] 500 mg PO BID 01/29/13 [Last Taken 01/28/18 ] Escitalopram Oxalate [Lexapro 10 MG] 10 mg PO DAILY 01/29/13 [Last Taken ] Multivitamins [Multivitamin (*)] 1 tab PO DAILY 01/29/13 [Last Taken 01/28/18] [place]-3 Fatty Acids [Fish Oil 1000 mg (*)] 1,000 mg PO BID 01/29/13 [Last Taken 01/28/18] Armodafinil [Nuvigil 250mg] 250 mg PO DAILY 07/04/13 [Last Taken 01/28/18] Rivaroxaban [Xarelto] 20 mg PO HS 02/12/17 [Last Taken 01/25/18] Sotalol HCl [Sotalol] 120 mg PO BID 02/12/17 [Last Taken 01/28/18] Tamsulosin HCl [Flomax 0.4 MG (*)] 0.8 mg PO HS 02/12/17 [Last Taken 01/28/18] Herbals/Supplements -Info Only 1 ea PO DAILY 08/05/17 [Last Taken 01/28/18] inFLIXimab [Remicade Inj 100 mg (*)] 0 mg IV Q56D 08/05/17 [Last Taken 06/25/17] Aspirin 81mg (*) 01/28/18 [Last Taken 01/25/18] I have personally reviewed and updated: family history, medical history, social history, surgical history - Past Medical History atrial fibrillation (flutter status post pacer chronically on anticoagulation recently changed to Eliquis from Xarelto), arthritis (psoriatic on Remicade every 8 weeks), degenerative disc disease, GERD Additional medical history: BPH. Negative for CAD. PE chronically on Eliquis changed from Xarelto as above. GERD. Degenerative disc disease, chronic back pain. Depression - Surgical History Reports: pacemaker/AICD Additional surgical history: multiple orthopedic surgeries (5 on bilateral feet and ankles, 2 on right knee, 3 on wrist). tonsillectomy. Pacer placement. Ablation x3. 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 Cor status-full. Patient does not want any prolonged life support. Review of Systems Review of Systems: ROS: 10pt was reviewed & negative except for what was stated in HPI & below Constitutional: Denies: chills, fever, weakness EENMT: Reports: no symptoms Cardiac: Reports: no symptoms Respiratory: Reports: no symptoms Gastrointestinal: Reports: no symptoms Genitourinary: Reports: no symptoms Muscolosketal: Reports: muscle pain (See HPI for lower extremity pain swelling) Neurological: Reports: emotional problems (Patient reports depression is treated fully. No SI or HI.), numbness (Left dorsum of the foot as noted per HPI) Hematologic/Lymphatic: Reports: no symptoms Physical Exam Physical Exam: Selected Entries 07/27/18 22:28 Blood Pressure Automatic Method Heart Rate 84 Respiratory 18 Rate O2 Sat (%) 96 Temperature (C) 36.4 C Blood Pressure 119/67 Mean Arterial 84 Pressure (MAP) O2 Delivery Room Air Mode Temperature Oral Source Temp Pulse Resp BP Pulse Ox 36.7 C 85 16 141/90 H 97 07/28/18 04:00 07/28/18 04:00 07/28/18 04:00 07/28/18 04:00 07/28/18 04:00 Constitutional: no apparent distress, appears nourished, other (NAD. Currently patient is resting comfortably in bed. Does appear fatigued but nontoxic.), No chronically ill appearing Eyes: PERRL, anicteric sclera, EOMI, No scleral injection Ears, Nose, Mouth, Throat: moist mucous membranes, other (No nasal discharge), No poor dentition Cardiovascular: regular rate and rhythym, pulses symmetric bilaterally (2+ strong pedal pulses.), edema (Patient with the tense swelling of the left calf and 1+ pitting edema pretibial.), other (Distant heart sounds with regular rhythm.) Peripheral Pulses: 2+: dorsalis-pedis (R), dorsalis-pedis (L) Respiratory: no respiratory distress, no rales or rhonchi, clear to auscultation , No respiratory distress Gastrointestinal: normoactive bowel sounds, soft, non-tender abdomen, no palpable masses, No guarding, No distension Genitourinary: no bladder tenderness, No sanches in urethra Skin: warm, normal color, no rashes or abrasions Musculoskeletal: pain with ROM, other (Left greater than right lower extremity swelling. The left calf is quite tight and tender. Patient has 2+ pedal pulses bilaterally and symmetric. He has some decreased range of motion secondary to complaints of pain in his calf. Patient with 1+ pretibial edema that extends just to approximately past the knee.) Neurologic: AAOx3, sensation intact bilaterally, numbness, other (Grossly nonfocal exam.), No facial droop Psychiatric: interacting appropriately, thought process linear, No anxious, No depressed, No poor insight, No poor judgement, No poor memory Lab Data & Imaging Review 07/28/18 01:35 07/27/18 23:10 WBC 5.43 10^3/uL (3.80-9.50) 07/28/18 01:35 RBC 3.36 10^6/uL (4.40-6.38) L 07/28/18 01:35 Hgb 10.7 g/dL (13.7-17.5) L 07/28/18 01:35 Hct 31.0 % (40.0-51.0) L 07/28/18 01:35 MCV 92.3 fL (81.5-99.8) 07/28/18 01:35 MCH 31.8 pg (27.9-34.1) 07/28/18 01:35 MCHC 34.5 g/dL (32.4-36.7) 07/28/18 01:35 RDW 12.9 % (11.5-15.2) 07/28/18 01:35 Plt Count 159 10^3/uL (150-400) 07/28/18 01:35 MPV 9.1 fL (8.7-11.7) 07/28/18 01:35 Neut % (Auto) 68.2 % (39.3-74.2) 07/28/18 01:35 Lymph % (Auto) 19.7 % (15.0-45.0) 07/28/18 01:35 [place] % (Auto) 9.6 % (4.5-13.0) 07/28/18 01:35 Eos % (Auto) 1.5 % (0.6-7.6) 07/28/18 01:35 Baso % (Auto) 0.6 % (0.3-1.7) 07/28/18 01:35 Nucleat RBC Rel Count 0.0 % (0.0-0.2) 07/28/18 01:35 Absolute Neuts (auto) 3.71 10^3/uL (1.70-6.50) 07/28/18 01:35 Absolute Lymphs (auto) 1.07 10^3/uL (1.00-3.00) 07/28/18 01:35 Absolute Monos (auto) 0.52 10^3/uL (0.30-0.80) 07/28/18 01:35 Absolute Eos (auto) 0.08 10^3/uL (0.03-0.40) 07/28/18 01:35 Absolute Basos (auto) 0.03 10^3/uL (0.02-0.10) 07/28/18 01:35 Absolute Nucleated RBC 0.00 10^3/uL (0-0.01) 07/28/18 01:35 Immature Gran % 0.4 % (0.0-1.1) 07/28/18 01:35 Immature Gran # 0.02 10^3/uL (0.00-0.10) 07/28/18 01:35 PT 14.9 SEC (12.0-15.0) 07/27/18 23:10 INR 1.15 (0.83-1.16) 07/27/18 23:10 APTT 37.9 SEC (23.0-38.0) 07/27/18 23:10 Sodium 132 mEq/L (135-145) L 07/27/18 23:10 Potassium 4.1 mEq/L (3.3-5.0) 07/27/18 23:10 Chloride 97 mEq/L (97-110) 07/27/18 23:10 Carbon Dioxide 27 mEq/l (22-31) 07/27/18 23:10 Anion Gap 8 mEq/L (8-16) 07/27/18 23:10 BUN 25 mg/dL (7-23) H 07/27/18 23:10 Creatinine 0.8 mg/dL (0.7-1.3) 07/27/18 23:10 Estimated GFR > 60 07/27/18 23:10 Glucose 97 mg/dL (70-100) 07/27/18 23:10 Calcium 9.0 mg/dL (8.5-10.4) 07/27/18 23:10 Magnesium 2.1 mg/dL (1.6-2.3) 07/27/18 23:10 Total Bilirubin 0.9 mg/dL (0.1-1.4) 07/27/18 23:10 Conjugated Bilirubin 0.2 mg/dL (0.0-0.5) 07/27/18 23:10 Unconjugated Bilirubin 0.7 mg/dL (0.0-1.1) 07/27/18 23:10 AST 30 IU/L (17-59) 07/27/18 23:10 ALT 23 IU/L (21-72) 07/27/18 23:10 Alkaline Phosphatase 61 IU/L (38-126) 07/27/18 23:10 Creatine Kinase 65 IU/L (0-224) 07/27/18 23:10 NT-Pro-B Natriuret Pep 407 pg/mL (0-125) H 07/27/18 23:10 Total Protein 6.2 g/dL (6.3-8.2) L 07/27/18 23:10 Albumin 3.1 g/dL (3.5-5.0) L 07/27/18 23:10 Patient ABO/Rh O POSITIVE 07/28/18 04:20 Antibody Screen NEGATIVE 07/28/18 04:20 Imaging Review: Ultrasound Venous Doppler - Bilateral Legs History: Pain and swelling. Comparison: 24 July 2018 Findings: Ultrasound venous Doppler imaging of the bilateral common femoral veins, femoral veins, popliteal veins, calf veins, and greater saphenous vein origins demonstrates normal compressibility , color-flow, Doppler flow, and augmentation without deep venous thrombosis. Barton's cyst is seen in the right popliteus fossa measuring 4.2 x 1.5 x 4.6 cm and possible further extension caudal suggesting may be partially ruptured. Additionally there is a complex fluid collection in the upper calf measuring 8.6 x 3.0 x 5.2 cm with no blood flow suggesting hematoma. Similar-appearing lesion is seen in the upper left calf measuring 11.7 x 2.0 x 6.1 cm. Impression: No deep venous thrombosis bilateral legs. Barton's cyst right popliteal fossa which may be partially ruptured. Heterogeneous avascular lesions in the upper calf bilateral suggesting hematoma. Results called and discussed with Khanh Ching MD at 07/27/2018 23:59. Assessment & Plan Assessment: 72-year-old gentleman with a history of atrial flutter status post pacer, history PE on Eliquis recently transitioned off of Xarelto who presents to the ED with complaints of left greater than right lower extremity swelling and calf pain. #Compartment syndrome (Acute) - patient has developed compartment syndrome of the left lower extremity with the extending hematoma and a ruptured Barton cyst. Dr. Troy with Orthopedics was consulted in the emergency department any plans to take the patient to the OR for surgical intervention. Patient has been holding his Eliquis for the last 2 days. He has been taking aspirin. He continues to have 2+ pedal pulses but on reporting some progressive neurologic symptoms including numbness tingling in his distal left lower extremity. #Leg hematoma (Acute) - patient denies any trauma or injury or near injury. He has been holding his Eliquis as noted above for last 2 days. #Acute pain - patient responded well to fentanyl in the emergency department. Will make a morphine available p.r.n. As well as [place] once patient's the NPO status is lifted postoperatively. #Acute blood loss anemia - H&H is been monitored and will continue to observe serially on has declines slightly. Patient's vital signs have remained stable. Again patient has been off of his Eliquis for the last 2 days. #Hyponatremia-likely secondary to declining volume in setting of hematoma bleeding. Patient will receive IV fluid supplementation. Will monitor with BMP. Chronic medical issues #Atrial flutter - status post pacer. Patient is on sotalol on outpatient basis. #BPH - resume Flomax postoperatively #HLD-continue statin when med rec available #Psoriatic arthritis-patient receives Remicade every 8 weeks and recently had injection this past week. Monitor for closely for signs of infection #GERD - med rec does not list any PPI or H2 blockers will treat p.r.n. If needed. #Depression - resume patient's Lexapro and Abilify 1 med rec available. FEN - IV fluid supplementation. Monitoring BMP given his hyponatremia. Replace electrolytes if needed. NPO currently at this time preoperatively. PPX-holding anticoagulation. No SCDs due to lower extremity swelling. Cor status-full. Patient reports he does not want prolonged life support. Disposition-patient admission status will be changed to inpatient given the need for surgical intervention compartment syndrome. Anticipate greater than 2 midnight stay.
--- NOTE | 2018-07-28 06:04 | GCON ---
PREOPERATIVE HISTORY AND PHYSICAL DATE OF CONSULTATION: 07/28/2018 REASON FOR CONSULTATION: Compartment syndrome, bilateral lower extremities posteriorly. HISTORY OF PRESENT ILLNESS: Arnulfo is a pleasant 72-year-old male, who is currently on Eliquis for atri al flutter. He has a pacemaker. He presented to the emergency department earlier this evening with 10 day to 2-week history of slowly worsening bilateral leg pain, swelling, and tightness. He had see n his coin rolling machine operator earlier this week, who had ordered ultrasounds, which were negative for DVT in b oth legs. The pain continued to get worse, and he started to develop numbness in the dorsum and plan tar aspects of the left foot, which prompted his visit to the emergency department. He has been obse rved in the emergency department with repeat ultrasounds of his legs with worsening clinical exam and concern for compartment syndrome, bilateral lower extremities. PAST MEDICAL HISTORY: Atrial flutter, pacemaker, psoriatic arthritis. PAST SURGICAL HISTORY: Pacemaker placement. SOCIAL HISTORY: Lives here [place] town. Does not smoke. Does not drink alcohol. REVIEW OF SYSTEMS: No shortness of breath, chest pain. Otherwise, review of systems is unremarkable . PHYSICAL EXAM: GENERAL: Healthy-appearing 72-year-old male. HEENT: Normocephalic, atraumatic. Ex traocular muscles intact. NECK: Supple. There is no lymphadenopathy. No JVD. CHEST: Clear to au scultation. CARDIOVASCULAR: Regular rate and rhythm. ABDOMEN: Soft, nontender, nondistended. No hepatosplenomegaly. BILATERAL LOWER EXTREMITIES: Anterior lateral compartments are soft. The poste rior compartments bilaterally are tense. The left is slightly worse than the right. There is a palp able hematoma in the proximal medial gastrocs bilaterally. He has pain with passive stretch on bilat eral lower extremities. The left again is slightly worse than the right. He does have 1+ dorsalis p murphy, posterior tibial pulses and is complaining of paresthesias on the dorsum and plantar aspects of the left foot. He is not having paresthesias in the right. IMAGING: Ultrasound from this evening is reviewed. It does show large fluid collections, consistent with a hematoma in both posterior medial calves, worse on the left than the right. He does have a B liv's cyst in the right popliteal fossa that may be ruptured as well. ASSESSMENT: Compartment syndrome, posterior compartments, bilateral lower extremities, on Eliquis. PLAN: Patient stopped Eliquis 2 days ago. Symptomatically, he is deteriorating with clinical findin gs consistent with a posterior compartment syndrome. I recommend proceeding with open superficial de ep posterior fasciotomies. This was explained in detail to Arnulfo. There may be need for additional vee rgery given that his bilateral lower extremities will need to consider soft dressings and limited lorraine ghtbearing postoperatively. He understands the risks and benefits of surgery, wishes to proceed. We will plan on taking him urgently up to the operating room for decompressive fasciotomies bilaterally . /[id number]/MODL
--- NOTE | 2018-07-28 06:06 | PDANEPAE ---
ANE History of Present Illness B compartment syndrome release ANE Past Medical History - Cardiovascular History Hx Hypertension: No Hx Arrhythmias: Yes Hx Chest Pain: No Hx Coronary Artery / Peripheral Vascular Disease: Yes Hx CHF / Valvular Disease: No Cardiovascular History Comment: ATRIAL FIBRILLATION. ATRIAL TACHYCARDIA - Pulmonary History Hx COPD: No Hx Asthma/Reactive Airway Disease: No Hx Recent Upper Respiratory Infection: No Hx Oxygen in Use at Home: No Hx Sleep Apnea: Yes - Neurologic History Hx Cerebrovascular Accident: Yes Hx Seizures: No Hx Dementia: No - Endocrine History Hx Diabetes: No Hypothyroid: No Hyperthyroid: No Obesity: no - Renal History Hx Renal Disorders: Yes Renal History Comment: RECURRENT KIDNEY STONES WHEN YOUNGER - Liver History Hx Hepatic Disorders: No - Neurological & Psychiatric Hx Hx Neurological and Psychiatric Disorders: Yes Neurological / Psychiatric History Comment: Depression - Cancer History Hx Cancer: No Cancer History Comment: BASAL CELL REMOCED - Congenital Disorder History Hx Congenital Disorders: No - GI History GERD: no Hx Gastrointestinal Disorders: No Gastrointestinal History Comment: OCCAS STOMACH ACID PROBLEMS - Other Health History Other Health History: PERTHES DISEASE - CHILDHOOD - Chronic Pain History Chronic Pain: Yes (lower back) - Surgical History Prior Surgeries: PACEMAKER IMPLANT. CARDIAC ABLATION X3. TONSILLECTOMY & ADENOIDECTOMY. ANGIOGRAM - NO STENTS. BUNIONECTOMY L. FOOT SURG BRIAN X5. KNEE R X2 MENISCUS. WRIST SURG R X2. KIDNEY STONES ANE Review of Systems Review of Systems: - Exercise capacity METS (RN): 4 METS ANE Patient History - Allergies Allergies/Adverse Reactions: ENVIRONMENTAL Allergy (Mild, Uncoded 07/05/13 14:35) Other-Enter Comments - Home Medications Home Medications: ARIPiprazole [Abilify 2 mg (*)] 2 mg PO DAILY 01/29/13 [Last Taken 01/28/18] Ascorbic Acid [Vitamin C 500 mg (*)] 500 mg PO BID 01/29/13 [Last Taken 01/28/18 ] Escitalopram Oxalate [Lexapro 10 MG] 10 mg PO DAILY 01/29/13 [Last Taken ] Multivitamins [Multivitamin (*)] 1 tab PO DAILY 01/29/13 [Last Taken 01/28/18] [place]-3 Fatty Acids [Fish Oil 1000 mg (*)] 1,000 mg PO BID 01/29/13 [Last Taken 01/28/18] Armodafinil [Nuvigil 250mg] 250 mg PO DAILY 07/04/13 [Last Taken 01/28/18] Rivaroxaban [Xarelto] 20 mg PO HS 02/12/17 [Last Taken 01/25/18] Sotalol HCl [Sotalol] 120 mg PO BID 02/12/17 [Last Taken 01/28/18] Tamsulosin HCl [Flomax 0.4 MG (*)] 0.8 mg PO HS 02/12/17 [Last Taken 01/28/18] Herbals/Supplements -Info Only 1 ea PO DAILY 08/05/17 [Last Taken 01/28/18] inFLIXimab [Remicade Inj 100 mg (*)] 0 mg IV Q56D 08/05/17 [Last Taken 06/25/17] Aspirin 81mg (*) 01/28/18 [Last Taken 01/25/18] - Smoking Hx Smoking Status: Never smoked - Family Anes Hx Family Hx Anesthesia Complications: NEG ANE Labs/Vital Signs - Labs Result Diagrams: 07/28/18 05:55 07/27/18 23:10 - Vital Signs Blood Pressure: 141/90 Heart Rate: 85 Respiratory Rate: 16 O2 Sat (%): 97 Height: 170.18 cm Weight: 68.946 kg ANE Physical Exam - Airway Neck exam: FROM Mallampati Score: Class 1 Mouth exam: normal dental/mouth exam - Pulmonary Pulmonary: clear to auscultation - Cardiovascular Cardiovascular: regular rate and rhythym - ASA Status ASA Status: III, E ANE Anesthesia Plan Anesthesia Plan: GA w LMA
[2018-07-28] MEDS ORDERED: ceFAZolin 1 GM VIAL ONE ×2 (06:20)
[2018-07-28] MEDS ORDERED: BUPIVACAINE 0.5% 30 ML SDV ONE (06:29)
[2018-07-28] MEDS ORDERED: ONDANSETRON 4 MG/2 ML VIAL ONE (06:58)
[2018-07-28] MEDS ORDERED: HYDROmorphONE/DILAUDID 1 MG/ML INJ IVP PRN (07:23)
[2018-07-28] MEDS ORDERED: fentaNYL 100 MCG/2 ML INJ IVP PRN (07:23)
[2018-07-28] MEDS ORDERED: NALOXONE HCL 0.4 MG/ML INJ IVP PRN (07:23)
--- NOTE | 2018-07-28 07:35 | POSTANESTH ---
Post Anesthetic Evaluation Cardiovascular Status: Similar to Pre-Op Cond Respiratory Status: Similar to Pre-op Cond. Level of Consciousness/Mental Status: Can Participate in Eval Pain Control: Adequate, Prn Tx Ordered Nausea/Vomiting Control: Adequate, Prn Tx Ordered Complications Possibly Related to Anesthesia: None Noted
--- NOTE | 2018-07-28 07:45 | POSTOPPROG ---
Post Op Note Date of Operation: 07/28/18 Surgeon: Addison Troy Anesthesiologist: Gonzalez Anesthesia: GET(General Endotracheal) Pre-op Diagnosis: Bilat posterior compartment syndromes Post-op Diagnosis: same Procedure: Bilat LE post fasciotomies Findings: Bilat deep hematomas Inf/Abcess present in the surg proc area at time of surgery?: No EBL: 50-100 Complications: none Drains: Hemovac
--- NOTE | 2018-07-28 08:30 | GOP ---
DATE OF OPERATION: 07/28/2018 SURGEON: Addison Troy MD ANESTHESIOLOGIST: Kunal Roth MD PREOPERATIVE DIAGNOSIS: Bilateral posterior compartment syndromes POSTOPERATIVE DIAGNOSIS: Bilateral posterior compartment syndromes. PROCEDURE PERFORMED: Open superficial and deep posterior fasciotomies of bilateral lower extremities . FINDINGS: ESTIMATED BLOOD LOSS: 100 mL. INDICATIONS: Arnulfo is a 72-year-old male, who has had bilateral lower extremity pain now for about 2 w eeks. It has worsened over this past week. He had an ultrasound done, which was ordered by his [place] [facility] physician, which was negative for DVT. He had worsening pain and presented to the emergency department earlier this evening. Again with worsening pain, repeat ultrasound showed large hematoma s in both legs. Clinically, he exhibited compartment syndrome symptoms with paresthesias in both fee t, diminished pulses, and pain with passive movement of the toes. Clinically, decision was made to t ana rosa him to the operating room for formal fasciotomies and evacuation of hematoma. DESCRIPTION OF PROCEDURE: After appropriate informed consent was obtained, the patient was taken to the operating room and placed supine on the operating table. Time-out was performed. Patient was id entified and correct site was identified. He received 2 g of Ancef preoperatively. Bilateral lower extremities were prepped and draped in usual sterile fashion. I made a standard posteromedial based incision about 2.5 cm posterior to the posterior border of the tibia. Soft tissue was carefully diss ected. The saphenous nerve and vein were protected. With a Simpson scissors, I released the fascia bot h proximally and distally, again being careful to protect the vessel and nerve. He had a large hemat gigi in the left leg. At least 250 mL of hematoma was evacuated. I irrigated the wound. There was n o active bleeding, although there was diffuse oozing from the muscle itself. I placed a deep drain, loosely closed the skin with 2-0 Vicryl and leidy, and sewed the drain in. I then repeated the amaris e procedure on the right lower extremity. There was less hematoma, probably about 150 mL on that jagjit e. Again, there was not as much ooze from the gastrocs muscle belly itself. The wound was irrigated , and a deep drain was placed there. It was sewed in. Skin again was loosely approximated with 2-0 Vicryl and leidy. I instilled 20 mL of 0.5% Marcaine plain around the incisions. Sterile loosely applied dressings were applied. The patient was awakened from anesthesia and taken to the recovery r oom in satisfactory condition. There were no immediate intraoperative complications. COMPLICATIONS: None. DRAINS: None. /[id number]/MODL
[2018-07-28] MEDS: HYDROCODONE/APAP 5/325 TAB PO PRN ×4 (08:38→23:37)
[2018-07-28] MEDS: NS 1,000 ML IV SCH ×2 (08:39→22:09)
--- NOTE | 2018-07-28 12:54 | PDMN ---
Medical Necessity Medical necessity: Pt meets IP criteria per MD; est los >2 mn for eval/tx of compartment syndrome r/t LLE hematoma & ruptured Barton's cyst; requiring further monitoring, Ortho consult w/surgical intervention, pain management, IVFs & therapies; hx afib/aflutter s/p pacer on AC, psoriatic arthritis on immunosuppressive drug; per H&P & order 07/28/18
--- NOTE | 2018-07-28 14:23 | HOSPPROG ---
Hospitalist Progress Note Assessment/Plan: 72-year-old gentleman with a history of atrial flutter status post pacer, history PE on Eliquis recently transitioned off of Xarelto who presents to the ED with complaints of left greater than right lower extremity swelling and calf pain. #Compartment syndrome (Acute) - patient has developed compartment syndrome of the left lower extremity with the extending hematoma and a ruptured Barton cyst. Dr. Troy with Orthopedics was consulted in the emergency department any plans to take the patient to the OR for surgical intervention. Patient has been holding his Eliquis for the last 2 days. He has been taking aspirin. He continues to have 2+ pedal pulses but on reporting some progressive neurologic symptoms including numbness tingling in his distal left lower extremity. #Leg hematoma (Acute) - patient denies any trauma or injury or near injury. He has been holding his Eliquis as noted above for last 2 days. #Acute pain - patient responded well to fentanyl in the emergency department. Will make a morphine available p.r.n. As well as [place] once patient's the NPO status is lifted postoperatively. #Acute blood loss anemia - H&H is been monitored and will continue to observe serially on has declines slightly. Patient's vital signs have remained stable. Again patient has been off of his Eliquis for the last 2 days. #Hyponatremia-likely secondary to declining volume in setting of hematoma bleeding. Patient will receive IV fluid supplementation. Will monitor with BMP. Chronic medical issues #Atrial flutter - status post pacer. Patient is on sotalol on outpatient basis. #BPH - resume Flomax postoperatively #HLD-continue statin when med rec available #Psoriatic arthritis-patient receives Remicade every 8 weeks and recently had injection this past week. Monitor for closely for signs of infection #GERD - med rec does not list any PPI or H2 blockers will treat p.r.n. If needed. #Depression - resume patient's Lexapro and Abilify 1 med rec available. FEN - IV fluid supplementation. Monitoring BMP given his hyponatremia. Replace electrolytes if needed. NPO currently at this time preoperatively. PPX-holding anticoagulation. No SCDs due to lower extremity swelling. Objective: Vital Signs Temp Pulse Resp BP Pulse Ox 36.7 C 65 16 97/56 L 95 07/28/18 11:48 07/28/18 11:48 07/28/18 11:48 07/28/18 11:48 07/28/18 11:48 07/27/18 07/28/18 07/29/18 05:59 05:59 05:59 Intake Total 840 Output Total 45 Balance 795 PT 14.9 SEC (12.0-15.0) 07/27/18 23:10 INR 1.15 (0.83-1.16) 07/27/18 23:10 ICD10 Worksheet Patient Problems: Problems Problem Status Onset Atrial fibrillation and flutter Active Dyspnea on exertion Acute Palpitations Acute Leg hematoma Acute Compartment syndrome Acute
--- NOTE | 2018-07-28 16:33 | ASMTCMCOM ---
CM Note CM Note Notes: Case Management Chart Review for Discharge Support: Arnulfo is a 72 y/o male admitted via [facility] ED for bilateral extremity swelling and calf pain. Patient was admitted for compartment syndrome. He has history of atrial flutter status post pacer, PE and chronic anti-coagulation, recently switched to Eliquis from Xarelto. Open superficial and deep posterior fasciotomies of bilateral lower extremities performed today. CM met with patient and Avani who will be support at home. They do not have any experience/preference for home agencies if needed. CM to follow. Current Discharge Plan: Discharge TBD. Date Signed: 07/28/2018 04:33 PM Electronically Signed By:Yoly Dc
--- NOTE | 2018-07-28 17:27 | SOAPPROG ---
SOAP Progress Note Assessment/Plan: Assessment: Plan: 07/28/18 17:25 s/p Bilat post fasciotomies with clinical improvement will pull drains when less than 30ml/shift hold anticoag Subjective: less pain since surgery Objective: dressing c/d/i drains in place compartment much softer today sensation returned to both feet 2+ dp/tp pulses Vital Signs Temp Pulse Resp BP Pulse Ox 36.6 C 66 16 123/63 H 94 07/28/18 16:00 07/28/18 16:00 07/28/18 16:00 07/28/18 16:00 07/28/18 16:00 07/27/18 07/28/18 07/29/18 05:59 05:59 05:59 Intake Total 840 Output Total 45 Balance 795 PT 14.9 SEC (12.0-15.0) 07/27/18 23:10 INR 1.15 (0.83-1.16) 07/27/18 23:10 ICD10 Worksheet Patient Problems: Problems Problem Status Onset Compartment syndrome Acute Leg hematoma Acute Atrial fibrillation and flutter Active Dyspnea on exertion Acute Palpitations Acute
[2018-07-28] MEDS ORDERED: LACTULOSE 20 GM/30 ML UDCUP PO PRN (21:52)
[2018-07-28] MEDS ORDERED: BISACODYL 10 MG SUPP PR PRN (21:52)
[2018-07-28] MEDS ORDERED: POLYETHYLENE GLYCOL 3350 17 GM PKT PO PRN (21:52)
[2018-07-28] MEDS ORDERED: MAGNESIUM HYDROXIDE 30 ML UDCUP PO PRN (21:52)
[2018-07-28] MEDS: SENNOSIDES/DOCUSATE SODIUM TAB PO SCH (22:17)
[2018-07-29] MEDS: HYDROCODONE/APAP 5/325 TAB PO PRN ×2 (07:20→13:43)
[2018-07-29] MEDS: SENNOSIDES/DOCUSATE SODIUM TAB PO SCH ×2 (07:21→20:25)
--- NOTE | 2018-07-29 10:42 | HOSPPROG ---
Hospitalist Progress Note Assessment/Plan: 72-year-old gentleman with a history of atrial flutter status post pacer on chronic AC recently transitioned off of Xarelto to eliquis presenting to the ED with complaints of left greater than right lower extremity swelling and calf pain 2/2 compartment syndrome associated with hematoma # compartment syndrome LLE. Due to underlying hematoma and ruptured Barton cyst, now s/p fasciotomy with drain placement by Dr. Troy. Sensation is currently intact though patient with increased pain. Working with PT/OT on increasing mobility. Drains to be dc'ed when < 30 ml output per day. # leg hematoma: in the setting of AC, as above #acute on chronic anemia: has been stable and at baseline only very mildly anemia likely 2/2 anemia of chronic dz with underlying psoriatic arthritis, acute component likely due to acute blood loss # hyponatremia: mild, will recheck in am # a fib/flutter: with hx of AVNRT as well and multiple ablations, now s/p pacer and on sotalol and eliquis at home, holding AC for now given acute hematoma with compartment syndrome as above, will need to f/u with cardiology to determine when to resume # chronic medical issues: BPH; HLD, GERD, depression # IP status, will require > 48 hours stay for eval/mgmt of above Patient new to my care. Old records reviewed and summarized as above Please note: initial H&P mentions history of PE for which patient is on AC however on chart review and discussion with patient and family there does not appear to be a history of PE, patient is on AC for his a fib/flutter Subjective: patient notes he is currently feeling well other than when he tries to walk the pain in his leg becomes severe, he is eating well, no other complaints Objective: Vital Signs Temp Pulse Resp BP Pulse Ox 36.6 C 65 16 112/60 94 07/29/18 07:25 07/29/18 07:25 07/29/18 07:25 07/29/18 07:25 07/29/18 07:25 07/28/18 07/29/18 07/30/18 05:59 05:59 05:59 Intake Total 1140 Output Total 1700 40 Balance -560 -40 PT 14.9 SEC (12.0-15.0) 07/27/18 23:10 INR 1.15 (0.83-1.16) 07/27/18 23:10 awake alert anicteric op clear rrr no mrg cta b soft nt nd no cce warm dry well perfused ble with [place] bandages on, 2 evita drains with serosanguinous output oriented appropriate - Time Spent With Patient Time Spent with Patient: greater than 35 minutes Time Spent with Patient: Greater than 35 minutes spent on this patients care, greater than 50% of time spent counseling, educating, and coordinating care regarding the above mentioned plan. ICD10 Worksheet Patient Problems: Problems Problem Status Onset Compartment syndrome Acute Leg hematoma Acute Atrial fibrillation and flutter Active Dyspnea on exertion Acute Palpitations Acute
[2018-07-29] MEDS ORDERED: TAMSULOSIN HCL 0.4 MG CAP PO SCH (11:00)
[2018-07-29] MEDS: SOTALOL HCL 80 MG TAB PO SCH ×2 (11:12→20:25)
--- NOTE | 2018-07-29 11:12 | ASMTCMCOM ---
CM Note CM Note Notes: CM met w/ pt and pts for dispo planning. PT is recommending HC. Pt is agreeable to having HC services. CM provided pt and pts w/ list of HC agencies. Pt and selected [facility]. [facility] is able to accept. Pts cell is [phone]. His wifes phone number is [phone]. CM to follow. Plan: [facility]; PT Date Signed: 07/29/2018 11:11 AM Electronically Signed By:DANIS Renae
[2018-07-29] MEDS: oxyCODONE IR 5 MG TAB PO PRN ×2 (17:03→21:05)
--- NOTE | 2018-07-29 20:24 | SOAPPROG ---
SOAP Progress Note Assessment/Plan: Assessment: Plan: 07/28/18 17:25 s/p Bilat post fasciotomies with clinical improvement will pull drains when less than 30ml/shift hold anticoag 07/29/18 20:23 s/p bilat LE fasciotomies possibly pull drains sunday Subjective: no pain at rest still pain when tries to walk Objective: dressing dry LT drain 70 ml RT drain 35 sensation intact bilat feet Vital Signs Temp Pulse Resp BP Pulse Ox 36.9 C 63 18 115/72 87 L 07/29/18 20:00 07/29/18 20:00 07/29/18 20:00 07/29/18 20:00 07/29/18 20:00 07/28/18 07/29/18 07/30/18 05:59 05:59 05:59 Intake Total 1140 1000 Output Total 1700 80 Balance -560 920 PT 14.9 SEC (12.0-15.0) 07/27/18 23:10 INR 1.15 (0.83-1.16) 07/27/18 23:10 ICD10 Worksheet Patient Problems: Problems Problem Status Onset Compartment syndrome Acute Leg hematoma Acute Atrial fibrillation and flutter Active Dyspnea on exertion Acute Palpitations Acute
[2018-07-29] MEDS: OMEGA-3 FATTY ACIDS 1,000 MG CAP PO SCH (20:25)
[2018-07-29] MEDS: TAMSULOSIN HCL 0.4 MG CAP PO SCH (20:25)
[2018-07-30] MEDS: oxyCODONE IR 5 MG TAB PO PRN (05:04)
[2018-07-30 05:33] LABS: PLATELET COUNT 160 10^3/uL (150-400)
[2018-07-30] MEDS: SOTALOL HCL 80 MG TAB PO SCH ×2 (09:37→20:22)
[2018-07-30] MEDS: OMEGA-3 FATTY ACIDS 1,000 MG CAP PO SCH ×2 (09:39→20:22)
[2018-07-30] MEDS: ESCITALOPRAM OXALATE 10 MG TAB PO SCH (09:39)
[2018-07-30] MEDS: SENNOSIDES/DOCUSATE SODIUM TAB PO SCH ×2 (09:39→20:22)
[2018-07-30] MEDS: Armodafinil [Nuvigil] 250 MG PO SCH (09:48)
--- NOTE | 2018-07-30 13:26 | SOAPPROG ---
SOAP Progress Note Assessment/Plan: Assessment: s/p Bilat post fasciotomies with clinical improvement. He reports his pain has continued to improve PE: Drains: Left drain 50 Right drain 20 Minimal pain with gentle PF/DF of the feet Plan: Right drain removed today without difficulty. Dressing changed. We will plan on repeat evaluation tomorrow and removal of left drain once its putting out less than 30/shift. Continue PT/OT 07/30/18 13:24 Objective: Vital Signs Temp Pulse Resp BP Pulse Ox 37.2 C 69 20 121/67 H 96 07/30/18 07:04 07/30/18 07:04 07/30/18 07:04 07/30/18 07:04 07/30/18 07:04 Laboratory Results 07/30/18 04:50 07/30/18 04:50 07/29/18 07/30/18 07/31/18 05:59 05:59 05:59 Intake Total 1140 1000 400 Output Total 1700 970 Balance -560 30 400 PT 14.9 SEC (12.0-15.0) 07/27/18 23:10 INR 1.15 (0.83-1.16) 07/27/18 23:10 ICD10 Worksheet Patient Problems: Problems Problem Status Onset Compartment syndrome Acute Leg hematoma Acute Atrial fibrillation and flutter Active Dyspnea on exertion Acute Palpitations Acute
--- NOTE | 2018-07-30 14:48 | HOSPPROG ---
Hospitalist Progress Note Assessment/Plan: 72-year-old gentleman with a history of atrial flutter status post pacer on chronic AC recently transitioned off of Xarelto to eliquis presenting to the ED with complaints of left greater than right lower extremity swelling and calf pain 2/2 compartment syndrome associated with hematoma. First encounter, chart reviewed. # compartment syndrome LLE. -Due to underlying hematoma and ruptured Barton cyst, now s/p fasciotomy with drain placement by Dr. Troy. -Sensation is currently intact less pain. -Working with PT/OT on increasing mobility. -Drains to be dc'ed when < 30 ml output per day. # leg hematoma: -in the setting of AC, as above #acute on chronic anemia: - has been stable and at baseline only very mildly anemia likely 2/2 anemia of chronic dz with underlying psoriatic arthritis, acute component likely due to acute blood loss # hyponatremia: - resolved # a fib/flutter: - with hx of AVNRT as well and multiple ablations, now s/p pacer and on sotalol and eliquis at home, holding AC for now given acute hematoma with compartment syndrome as above, will need to f/u with cardiology to determine when to resume # chronic medical issues: -BPH; HLD, GERD, depression # IP status, will require > 48 hours stay for eval/mgmt of above Patient new to my care. Old records reviewed and summarized as above Please note: initial H&P mentions history of PE for which patient is on AC however on chart review and discussion with patient and family there does not appear to be a history of PE, patient is on AC for his a fib/flutter Subjective: Up in chair. Feeling better today. Less pain. Objective: Vital Signs Temp Pulse Resp BP Pulse Ox 37.2 C 69 20 121/67 H 96 07/30/18 07:04 07/30/18 07:04 07/30/18 07:04 07/30/18 07:04 07/30/18 07:04 Laboratory Results 07/30/18 04:50 07/30/18 04:50 07/29/18 07/30/18 07/31/18 05:59 05:59 05:59 Intake Total 1140 1000 400 Output Total 1700 970 Balance -560 30 400 PT 14.9 SEC (12.0-15.0) 07/27/18 23:10 INR 1.15 (0.83-1.16) 07/27/18 23:10 - Physical Exam Constitutional: no apparent distress, appears nourished, not in pain Eyes: PERRL, anicteric sclera, EOMI Ears, Nose, Mouth, Throat: moist mucous membranes, hearing normal, ears appear normal Cardiovascular: No JVD, No tachycardia, No edema Respiratory: no respiratory distress, no rales or rhonchi, reduced air movement Gastrointestinal: normoactive bowel sounds, No tenderness, No ascites Skin: warm, normal color, No mottled Musculoskeletal: pain with ROM, muscular tenderness, abnormal gait, generalized weakness Neurologic: AAOx3 Psychiatric: interacting appropriately, not anxious, not encephalopathic, thought process linear ICD10 Worksheet Patient Problems: Problems Problem Status Onset Atrial fibrillation and flutter Active Dyspnea on exertion Acute Palpitations Acute Leg hematoma Acute Compartment syndrome Acute
[2018-07-30] MEDS: TAMSULOSIN HCL 0.4 MG CAP PO SCH (20:22)
[2018-07-31] MEDS: SENNOSIDES/DOCUSATE SODIUM TAB PO SCH ×2 (08:07→20:47)
[2018-07-31] MEDS: ESCITALOPRAM OXALATE 10 MG TAB PO SCH (08:07)
[2018-07-31] MEDS: OMEGA-3 FATTY ACIDS 1,000 MG CAP PO SCH ×2 (08:07→20:29)
[2018-07-31] MEDS: SOTALOL HCL 80 MG TAB PO SCH ×2 (08:08→20:29)
[2018-07-31] MEDS: Armodafinil [Nuvigil] 250 MG PO SCH (08:12)
--- NOTE | 2018-07-31 13:33 | HOSPPROG ---
Hospitalist Progress Note Assessment/Plan: 72-year-old gentleman with a history of atrial flutter status post pacer on chronic AC recently transitioned off of Xarelto to eliquis presenting to the ED with complaints of left greater than right lower extremity swelling and calf pain 2/2 compartment syndrome associated with hematoma. # compartment syndrome LLE. -Due to underlying hematoma and ruptured Barton cyst, now s/p fasciotomy with drain placement by Dr. Troy. -Sensation is currently intact less pain. -Working with PT/OT on increasing mobility. -Drains to be dc'ed when < 30 ml output per day. -one drain out # leg hematoma: -in the setting of AC, as above #acute on chronic anemia: - has been stable and at baseline only very mildly anemia likely 2/2 anemia of chronic dz with underlying psoriatic arthritis, acute component likely due to acute blood loss # hyponatremia: - resolved # a fib/flutter: - with hx of AVNRT as well and multiple ablations, now s/p pacer and on sotalol and eliquis at home, holding AC for now given acute hematoma with compartment syndrome as above, will need to f/u with cardiology to determine when to resume # chronic medical issues: -BPH; HLD, GERD, depression # IP status, will require > 48 hours stay for eval/mgmt of above Please note: initial H&P mentions history of PE for which patient is on AC however on chart review and discussion with patient and family there does not appear to be a history of PE, patient is on AC for his a fib/flutter Subjective: Feeling better today. Still some leg stiffness. Less pain. Objective: Vital Signs Temp Pulse Resp BP Pulse Ox 36.8 C 66 16 111/56 L 96 07/31/18 07:54 07/31/18 08:08 07/31/18 07:54 07/31/18 08:08 07/31/18 07:54 Laboratory Results 07/30/18 04:50 07/30/18 04:50 07/30/18 07/31/18 08/01/18 05:59 05:59 05:59 Intake Total 1000 1125 350 Output Total 970 34 Balance 30 1091 350 PT 14.9 SEC (12.0-15.0) 07/27/18 23:10 INR 1.15 (0.83-1.16) 07/27/18 23:10 - Physical Exam Constitutional: no apparent distress, appears nourished Eyes: PERRL, anicteric sclera Ears, Nose, Mouth, Throat: moist mucous membranes, hearing normal Cardiovascular: No JVD, No edema Respiratory: no respiratory distress, reduced air movement Gastrointestinal: No tenderness, No ascites Skin: warm, normal color Neurologic: AAOx3 Psychiatric: interacting appropriately, not anxious, not encephalopathic ICD10 Worksheet Patient Problems: Problems Problem Status Onset Atrial fibrillation and flutter Active Dyspnea on exertion Acute Palpitations Acute Leg hematoma Acute Compartment syndrome Acute
--- NOTE | 2018-07-31 14:07 | SOAPPROG ---
SOAP Progress Note Assessment/Plan: Assessment: s/p Bilat post fasciotomies with clinical improvement. He reports his pain has continued to improve PE: Drains: Left drain 30 Minimal pain with gentle PF/DF of the feet Sensation intact to light touch throughout the bilateral lower extremities Plan: Drain will remain in place. Patient may be discharged today from our standpoint. He will follow up in our clinic tomorrow to check to drain and possibly D/C. He may weight bear as tolerated 07/31/18 14:04 Objective: Vital Signs Temp Pulse Resp BP Pulse Ox 36.8 C 66 16 111/56 L 96 07/31/18 07:54 07/31/18 08:08 07/31/18 07:54 07/31/18 08:08 07/31/18 07:54 Laboratory Results 07/30/18 04:50 07/30/18 04:50 07/30/18 07/31/18 08/01/18 05:59 05:59 05:59 Intake Total 1000 1125 350 Output Total 970 34 Balance 30 1091 350 PT 14.9 SEC (12.0-15.0) 07/27/18 23:10 INR 1.15 (0.83-1.16) 07/27/18 23:10 ICD10 Worksheet Patient Problems: Problems Problem Status Onset Atrial fibrillation and flutter Active Dyspnea on exertion Acute Palpitations Acute Leg hematoma Acute Compartment syndrome Acute
[2018-07-31] MEDS: TAMSULOSIN HCL 0.4 MG CAP PO SCH (20:29)
[2018-07-31] MEDS ORDERED: TAMSULOSIN HCL 0.4 MG CAP PO ONE (21:00)
[2018-08-01 08:41] VITALS: BP 110/62
[2018-08-01] MEDS: OMEGA-3 FATTY ACIDS 1,000 MG CAP PO SCH (09:22)
[2018-08-01] MEDS: ESCITALOPRAM OXALATE 10 MG TAB PO SCH (09:23)
[2018-08-01] MEDS: Armodafinil [Nuvigil] 250 MG PO SCH (09:23)
[2018-08-01] MEDS: SOTALOL HCL 80 MG TAB PO SCH (09:23)
[2018-08-01] MEDS: SENNOSIDES/DOCUSATE SODIUM TAB PO SCH (11:16)
--- NOTE | 2018-08-01 11:21 | ASMTLACE ---
JONAH Length of stay for Answers: 3 days current admission Acuity / Level of Answers: Yes Care: Did the patient have an inpatient admission? Comorbidities - select Answers: Cerebrovascular disease all that apply (CVA, TIA, aneurysms, vasc ular dementia) Opioid dependence / Chronic pain Other Notes: AFib; GERD # of Emergency department Answers: 1-2 visits in the last 6 months Social determinants Answers: Mental health diagnosis (anxiety, depression, pers onality disorders, etc.) Score: 16 Date Signed: 08/01/2018 11:21 AM Electronically Signed By:Salina Dean RN
--- NOTE | 2018-08-01 11:41 | ASMTDCNOTE ---
Case Management Discharge Discharge Order Complete? Answers: Yes Patient to Obtain Answers: Independently Medications Transportation Arranged Answers: Family/Friends Faxed Final Orders Answers: Yes Discharge Comments Notes: D/w [employer], final orders in. Amber at [facility] notified, RN to leave report. Date Signed: 08/01/2018 11:41 AM Electronically Signed By:Salina Dean RN
--- NOTE | 2018-08-01 11:42 | PDIAF ---
- Diagnosis Diagnosis: compartment syndrome Code Status: Full Code - Medication Management Discharge Medications: Medications to Continue on Transfer Armodafinil [Nuvigil 250mg] 250 mg PO DAILY 07/28/18 [Last Taken 07/27/18] Aspirin [Aspirin 81mg (*)] 81 mg PO DAILY 07/28/18 [Last Taken 07/27/18] Escitalopram Oxalate [Lexapro 10 MG] 10 mg PO DAILY 07/28/18 [Last Taken ] [place]-3 Fatty Acids [Fish Oil 1000 mg (*)] 1,000 mg PO BID 07/28/18 [Last Taken 07/27/18] Sotalol HCl [SOTALOL] 120 mg PO BID 07/28/18 [Last Taken 07/27/18] Tamsulosin HCl [Flomax 0.4 MG (*)] 0.8 mg PO HS 07/28/18 [Last Taken 07/26/18] inFLIXimab [Remicade Inj 100 mg (*)] 100 mg IV Q56D 07/28/18 [Last Taken ] Acetaminophen [Tylenol 325mg (*)] 650 mg PO Q4HRS PRN tab 08/01/18 [Last Taken Unknown] Polyethylene Glycol 3350 [Miralax 17 gm (*)] 17 gm PO DAILY PRN pkt 08/01/18 [ Last Taken Unknown] oxyCODONE IR [Oxycodone Ir (*)] 5 - 10 mg PO Q4HRS PRN #10 tab 08/01/18 [Last Taken Unknown] Discharge Medications: Refer to the Discharge Home Medication list for PRN reason. PICC Care - Routine: N/A - Orders Services needed: Home Care, Physical Therapy Home Care Face to Face: I certify that this patient was under my care and that I had the required [id number] encounter meeting the encounter requirements on the discharge day. My findings support the fact that the patient is homebound as defined in Home Care Face to Face Continued: CMS Chapter 7 Medicare Benefits Manual 30.1.1 , The condition of the patient is such that there exists a normal inability to leave home and consequently, leaving home would require a considerable and taxing effort. Diet Recommendation: no restrictions on diet Additional Instructions: Keep dressings clean and dry. Office number [phone]. He may weight bear as tolerated. - Follow Up Care Current Providers and Referrals: Uriel Adams MD [Primary Care Provider] - As per Instructions
--- NOTE | 2018-08-01 11:44 | PDIAF ---
- Diagnosis Diagnosis: compartment syndrome Code Status: Full Code - Medication Management Discharge Medications: Medications to Continue on Transfer Armodafinil [Nuvigil 250mg] 250 mg PO DAILY 07/28/18 [Last Taken 07/27/18] Aspirin [Aspirin 81mg (*)] 81 mg PO DAILY 07/28/18 [Last Taken 07/27/18] Escitalopram Oxalate [Lexapro 10 MG] 10 mg PO DAILY 07/28/18 [Last Taken ] [place]-3 Fatty Acids [Fish Oil 1000 mg (*)] 1,000 mg PO BID 07/28/18 [Last Taken 07/27/18] Sotalol HCl [SOTALOL] 120 mg PO BID 07/28/18 [Last Taken 07/27/18] Tamsulosin HCl [Flomax 0.4 MG (*)] 0.8 mg PO HS 07/28/18 [Last Taken 07/26/18] inFLIXimab [Remicade Inj 100 mg (*)] 100 mg IV Q56D 07/28/18 [Last Taken ] Acetaminophen [Tylenol 325mg (*)] 650 mg PO Q4HRS PRN tab 08/01/18 [Last Taken Unknown] Polyethylene Glycol 3350 [Miralax 17 gm (*)] 17 gm PO DAILY PRN pkt 08/01/18 [ Last Taken Unknown] oxyCODONE IR [Oxycodone Ir (*)] 5 - 10 mg PO Q4HRS PRN #10 tab 08/01/18 [Last Taken Unknown] Discharge Medications: Refer to the Discharge Home Medication list for PRN reason. PICC Care - Routine: N/A - Orders Services needed: Home Care, Physical Therapy Home Care Face to Face: I certify that this patient was under my care and that I had the required [id number] encounter meeting the encounter requirements on the discharge day. My findings support the fact that the patient is homebound as defined in Home Care Face to Face Continued: CMS Chapter 7 Medicare Benefits Manual 30.1.1 , The condition of the patient is such that there exists a normal inability to leave home and consequently, leaving home would require a considerable and taxing effort. Diet Recommendation: no restrictions on diet Additional Instructions: Keep dressings clean and dry. Office number [phone]. He may weight bear as tolerated. - Follow Up Care Current Providers and Referrals: Addison Troy MD [Medical Doctor] - Uriel Adams MD [Primary Care Provider] - As per Instructions
--- NOTE | 2018-08-01 13:15 | SOAPPROG ---
SOAP Progress Note Assessment/Plan: Assessment: s/p Bilat post fasciotomies with clinical improvement. He reports his pain has continued to improve. he continues to complain of stiffness especially when ambulating PE: Drains: Left drain 20 Minimal pain with gentle PF/DF of the feet Sensation intact to light touch throughout the bilateral lower extremities Plan: Drain will remain in place. Dressing changed and new DSD placed. Patient may be discharged today from our standpoint. He will follow up in our clinic tomorrow to check to drain and possibly D/C. He may weight bear as tolerated 08/01/18 13:14 Objective: Vital Signs Temp Pulse Resp BP Pulse Ox 36.6 C 83 16 110/62 93 08/01/18 08:00 08/01/18 09:23 08/01/18 08:00 08/01/18 09:23 08/01/18 08:00 Laboratory Results 07/30/18 04:50 07/30/18 04:50 07/31/18 08/01/18 08/02/18 05:59 05:59 05:59 Intake Total 1125 350 Output Total 34 20 10 Balance 1091 330 -10 PT 14.9 SEC (12.0-15.0) 07/27/18 23:10 INR 1.15 (0.83-1.16) 07/27/18 23:10 ICD10 Worksheet Patient Problems: Problems Problem Status Onset Compartment syndrome Acute Leg hematoma Acute Atrial fibrillation and flutter Active Dyspnea on exertion Acute Palpitations Acute
--- NOTE | 2018-08-01 16:21 | GDS ---
DISCHARGE DIAGNOSES: 1. Compartment syndrome, lower extremities. 2. Leg hematoma. 3. Acute on chronic anemia. 4. Hyponatremia. 5. History of atrial fibrillation. CONSULTATIONS: Orthopedics. PHYSICAL EXAM: GENERAL: The patient is alert. VITAL SIGNS: Afebrile at 36.6, pulse is 80, respira tory rate 16, blood pressure is 110/62, he is saturating 93% on room air. I have seen and evaluated the patient on the day of discharge. HOSPITAL COURSE: Mr. Gutierrez is a 72-year-old male who presented to the emergency room with complaint s of calf swelling. He was evaluated and diagnosed with: 1. Compartment syndrome. During this hospitalization, the patient required fasciotomy and drain chelsey cement by Dr. Troy. His output has been significantly decreased. He will be discharged with 1 r emaining drain and to follow up in the office in 1 day. 2. Leg hematoma. This is in the setting of chronic anticoagulation on Eliquis. The patient has bee n off this medication and should not be re-initiated in the outpatient setting. 3. Acute on chronic anemia. This is stable. He has not required any transfusions during this hospi talization. 4. Hyponatremia, resolved. 5. History of atrial fibrillation. The patient will follow with Dr. Hearn in the outpatient setting r egarding his chronic anticoagulation. He has not been discharged on any anticoagulating medications other than his aspirin. DISPOSITION: He will be discharged home independently with home physical therapy. FOLLOWUP: With Dr. Troy as well as Dr. Adams, his primary care physician. DISCHARGE MEDICATIONS: Please refer to EMR form. I have provided the patient a prescription for oxy codone IR. I spent greater than 35 minutes in the care, coordination and management of this patient's dispositio n. /[id number]/MODL
--- NOTE | 2018-08-01 16:44 | ASDISCHSUM ---
Discharge Information Plan Status:Home with Home Health Medically Cleared to Leave: Discharge Date:08/01/2018 02:45 PM CM D/C Disposition:Home Health Service ADT D/C Disposition:[id number] Projected Discharge Date:07/30/2018 11:00 AM Transportation at D/C:Family Discharge Delay Reason: Follow-Up Date:07/30/2018 11:00 AM Discharge Slot: Final Diagnosis: Placement Information Referral Type:*Home Health Care Services Referral ID:[id number] Provider Name:[facility] Address 1:[address] Address 2: City:[place] Selection Factors: State:[place] Patient Contact Information Contact Name:ABDI Relationship: Address:[address] City:[place] Alternate Phone: State/Zip Code:[place] [address] Email: Financial Information Financial Class:Medicare Primary Plan Desc:MEDICARE INPATIENT Primary Plan Number:[id number] Secondary Plan Desc:MIKE PPO Secondary Plan Number:[id number] Assessment Information [facility] CM Progress Note CM Note CM Note Notes: Case Management Chart Review for Discharge Support: Arnulfo is a 72 y/o male admitted via [facility] ED for bilateral extremity swelling and calf pain. Patient was admitted for compartment syndrome. He has history of atrial flutter status post pacer, PE and chronic anti-coagulation, recently switched to Eliquis from Xarelto. Open superficial and deep posterior fasciotomies of bilateral lower extremities performed today. CM met with patient and Avani who will be support at home. They do not have any experience/preference for home agencies if needed. CM to follow. Current Discharge Plan: Discharge TBD. Date Signed: 07/28/2018 04:33 PM Electronically Signed By:Yoly Dc [facility] Progress Note CM Note CM Note Notes: CM met w/ pt and pts for dispo planning. PT is recommending HC. Pt is agreeable to having HC services. CM provided pt and pts w/ list of HC agencies. Pt and selected [facility]. [facility] is able to accept. Pts cell is [phone]. His wifes phone number is [phone]. CM to follow. Plan: [facility]; PT Date Signed: 07/29/2018 11:11 AM Electronically Signed By:DANIS Renae LACE LACE Length of stay for Answers: 3 days current admission Acuity / Level of Answers: Yes Care: Did the patient have an inpatient admission? Comorbidities - select Answers: Cerebrovascular disease all that apply (CVA, TIA, aneurysms, vasc ular dementia) Opioid dependence / Chronic pain Other Notes: AFib; GERD # of Emergency department Answers: 1-2 visits in the last 6 months Social determinants Answers: Mental health diagnosis (anxiety, depression, pers onality disorders, etc.) Score: 16 Date Signed: 08/01/2018 11:21 AM Electronically Signed By:Salina Dean RN Case Management Discharge Plan Note Case Management Discharge Discharge Order Complete? Answers: Yes Patient to Obtain Answers: Independently Medications Transportation Arranged Answers: Family/Friends Faxed Final Orders Answers: Yes Discharge Comments Notes: D/w [facility], final orders in. Amber at [facility] notified, RN to leave report. Date Signed: 08/01/2018 11:41 AM Electronically Signed By:Salina Dean RN Intervention Information Intervention Type:*IM-Signed Date of Service:08/01/2018 11:34 AM Patient Type:Inpatient Staff Member:Radha Almonte Hours: Discipline: Severity: Comment:
[2018-08-01] MEDS ORDERED: TAMSULOSIN HCL 0.4 MG CAP PO SCH (21:00)
== END 2018-08-01 14:45 | disposition home health service (06) | DRG 558 ==
LOC: OBSVTOIN 07-28 06:53 → F3E 07-28 08:22
PROVIDERS: ADMIT Family Medicine; ATTEND Family Medicine
PROC: 0J9P00Z Drainage of Left Lower Leg Subcutaneous Tissue and Fascia with Drainage Device, Open Approach (ICD-10-PCS; principal; 2018-07-28 06:15)
PROC: 0J9N00Z Drainage of Right Lower Leg Subcutaneous Tissue and Fascia with Drainage Device, Open Approach (ICD-10-PCS; principal; 2018-07-28 06:15)
DX: M79.A21 Nontraumatic compartment syndrome of right lower extremity (principal); M79.A22 Nontraumatic compartment syndrome of left lower extremity; M79.81 Nontraumatic hematoma of soft tissue; M66.0 Rupture of popliteal cyst; E87.1 Hypo-osmolality and hyponatremia; D62 Acute posthemorrhagic anemia; D63.8 Anemia in other chronic diseases classified elsewhere; K21.9 Gastro-esophageal reflux disease without esophagitis; M51.36 Other intervertebral disc degeneration, lumbar region; N40.0 Benign prostatic hyperplasia without lower urinary tract symptoms; L40.50 Arthropathic psoriasis, unspecified; I48.92 Unspecified atrial flutter; E78.5 Hyperlipidemia, unspecified; F32.9 Major depressive disorder, single episode, unspecified; Z86.711 Personal history of pulmonary embolism; Z79.01 Long term (current) use of anticoagulants; Z95.0 Presence of cardiac pacemaker
CPT/HCPCS: 84481-90; 96374; 97110-GP; 97116-GP; 97161-GP; 97165-GO; 97530-GO; 97535-GO; G8978-GP-CK; G8979-GP-CI; G8987-GO-CI; G8988-GO-CI; G8989-GO-CH; J0690; J1100; J2270; J2405; J2704; J3010

== ENCOUNTER 2018-09-24 08:40 | Emergency (ER) | payer OTHER ==
[2018-09-24 08:48] VITALS: BP 133/87
[2018-09-24] MEDS ORDERED: PROPARACAINE 0.5% 15 ML OPHT DROP ONE (09:16)
[2018-09-24] MEDS ORDERED: FLUORESCEIN SODIUM 1 MG STRIP OP ONE (09:16)
--- NOTE | 2018-09-24 09:19 | EDPHY ---
H & P Stated Complaint: R eye pain swelling/hemm- spontaneous x 30 min Time Seen by Provider: 09/24/18 09:17 HPI/ROS: HPI: This is a 72-year-old male who presents with Chief Complaint: R eye pain swelling/hemorrhage- spontaneous x 30 min Location: Right eye Quality: Pain, swelling, hemorrhage Duration: 30 min prior to arrival Signs and Symptoms: no fever, no nausea, no vomiting, no photophobia, no noise sensitivity, no neck stiffness, no ear pain, no tinnitus, no nasal congestion, no sinus pressure, no weakness, no radiation, no aura Timing: Sudden onset, spontaneous Severity: Moderate to severe Context: Patient woke up this morning around 6:30 a.m. With no vision changes, no eye pain he went back to sleep and when he woke up again he noted some dull aching pain in his right eye. He looked in the mirror and noticed some hemorrhage or bleeding that sparing the iris. Complains of a mild dull aching headache in the back of his eye. He has yearly eye exams. He denies any recent coughing, sneezing. In January of 2018 patient had compartment syndrome secondary to spontaneous hemorrhage while on Eliquis for atrial fibrillation. Patient is no longer on blood thinners. Denies trauma. Modifying Factors: None Comment: ROS: A comprehensive 10 system review of systems is otherwise negative aside from elements mentioned in the history of present illness. MEDICAL/SURGICAL/SOCIAL HISTORY: Medical/surgical history: pacemaker/a flutter-ablation tx, rotator cuff injury (pulled bone fragment), tonsillectomy, compartment syndrome 02/10, multiple on feet and ankles, r knee,r wrist, BPH, depression Social history: Nonsmoker. Retired. Family history noncontributory. CONSTITUTIONAL: Elderly, polite and cooperative white male, at bedside, awake and alert, no obvious distress Visual Acuity: noted from Nurse's notes. Right 20/30, left 20/25, both 20/20 with correction Pupils: equal round and reactive to light. EOMI. Lids: no edema or swelling. Skin: no proptosis, no periorbital erythema or swelling, no vesicles Conjunctivae: Extensive hemorrhage sparing the iris NEUROLOGICAL: no focal neuro deficits. GCS 15. SKIN: Warm and dry, no erythema. no rash. Good capillary refill. Source: Patient Exam Limitations: No limitations - Personal History Tetanus Vaccine Date: unsure - Medical/Surgical History Hx Asthma: No Hx Chronic Respiratory Disease: No Hx Diabetes: No Hx Cardiac Disease: Yes Hx Renal Disease: No Hx Cirrhosis: No Hx Alcoholism: No Hx HIV/AIDS: No Hx Splenectomy or Spleen Trauma: No Other PMH: pacemaker/a flutter-ablation tx. rotator cuff injury (pulled bone fragment). tonsillectomy, compartment syndrome 02/10. multiple on feet and ankles, r knee,r wrist. - Social History Smoking Status: Never smoked Constitutional: Initial Vital Signs Temperature (C) 36.7 C 09/24/18 08:44 Heart Rate 78 09/24/18 08:44 Respiratory Rate 16 09/24/18 08:44 Blood Pressure 133/87 H 09/24/18 08:44 O2 Sat (%) 97 09/24/18 08:44 O2 Delivery Mode Room Air Allergies/Adverse Reactions: ENVIRONMENTAL Allergy (Mild, Uncoded 07/05/13 14:35) Other-Enter Comments Home Medications: Medication Instructions Recorded Lexapro 09/24/18 Nuvigil 09/24/18 Remicade Inj 100 mg (*) 09/24/18 SOTALOL 09/24/18 Tamsulosin HCl 09/24/18 Medical Decision Making ED Course/Re-evaluation: Vital signs reviewed and stable upon arrival. Blood pressure 133/87. Proparacaine placed for local anesthetic and patient had adequate relief of pain. Laboratory studies including coags obtained 0928: ED decision to consult Ophthalmology. Spoke with Dr. Bowles who advises to sent patient directly to his office to be evaluated. 1000: Labs reviewed. H&H 12.9/38.9, platelet 119 K, coags within normal limits This patient was seen under the supervision of my secondary supervising physician. Discussed this patient with Dr. Mora who did see the patient. Differential Diagnosis: Differential diagnosis includes but is not limited to subconjunctival hemorrhage , coagulopathy. - Data Points Laboratory Results: Laboratory Results 09/24/18 09:40 09/24/18 09/24/18 09:40 09:40 WBC 3.76 10^3/uL L 10^3/uL (3.80-9.50) RBC 4.20 10^6/uL L 10^6/uL (4.40-6.38) Hgb 12.9 g/dL L g/dL (13.7-17.5) Hct 38.9 % L % (40.0-51.0) MCV 92.6 fL fL (81.5-99.8) MCH 30.7 pg pg (27.9-34.1) MCHC 33.2 g/dL g/dL (32.4-36.7) RDW 13.2 % % (11.5-15.2) Plt Count 119 10^3/uL L 10^3/uL (150-400) MPV 9.4 fL fL (8.7-11.7) Neut % (Auto) 48.9 % % (39.3-74.2) Lymph % (Auto) 33.8 % % (15.0-45.0) Garfield % (Auto) 14.6 % H % (4.5-13.0) Eos % (Auto) 1.9 % % (0.6-7.6) Baso % (Auto) 0.5 % % (0.3-1.7) Nucleat RBC Rel Count 0.0 % % (0.0-0.2) Absolute Neuts (auto) 1.84 10^3/uL 10^3/uL (1.70-6.50) Absolute Lymphs (auto) 1.27 10^3/uL 10^3/uL (1.00-3.00) Absolute Monos (auto) 0.55 10^3/uL 10^3/uL (0.30-0.80) Absolute Eos (auto) 0.07 10^3/uL 10^3/uL (0.03-0.40) Absolute Basos (auto) 0.02 10^3/uL 10^3/uL (0.02-0.10) Absolute Nucleated RBC 0.00 10^3/uL 10^3/uL (0-0.01) Immature Gran % 0.3 % % (0.0-1.1) Immature Gran # 0.01 10^3/uL 10^3/uL (0.00-0.10) PT 13.9 SEC SEC (12.0-15.0) INR 1.05 (0.83-1.16) APTT 34.6 SEC SEC (23.0-38.0) Departure - Departure Disposition: Home, Routine, Self-Care Clinical Impression: Non-traumatic subconjunctival hemorrhage of right eye, Thrombocytopenia Condition: Fair Instructions: Subconjunctival Hemorrhage (ED), Thrombocytopenia (ED) Additional Instructions: Please go to Dr. Bowles office immediately from the emergency room for further evaluation. Follow up with Dr. Herrera in 3-5 days regarding your low platelet count. Referrals: Uriel Adams MD [Primary Care Provider] - As per Instructions Ravi Bowles MD [Medical Doctor] - As per Instructions Jovanni Herrera MD [Medical Doctor] - As per Instructions
[2018-09-24 09:56] LABS: PLATELET COUNT 119 10^3/uL (150-400)
[2018-09-24 10:03] LABS: INR 1.05 (0.83-1.16); PROTIME(PATIENT) 13.9 SEC (12.0-15.0)
== END 2018-09-24 09:46 | disposition home or self-care (01) ==
DX: H11.31 Conjunctival hemorrhage, right eye (principal); D69.6 Thrombocytopenia, unspecified

== ENCOUNTER → 2018-09-25 | Outpatient (CLI) | payer OTHER | LOC: FIMAGING 14:54 | PROVIDERS: ATTEND Orthopaedic Surgery Hand Surgery | DX: M18.11 Unilateral primary osteoarthritis of first carpometacarpal joint, right hand (principal); Z98.890 Other specified postprocedural states ==

== ENCOUNTER → 2019-02-25 | Outpatient (CLI) | payer OTHER | LOC: BMCIMAGING 17:32 | PROVIDERS: ATTEND Emergency Medicine | DX: S67.196A Crushing injury of right little finger, initial encounter (principal) ==

== ENCOUNTER 2019-03-18 05:42 | Day surgery (SDC) | payer OTHER ==
--- NOTE | 2019-03-17 12:21 | SOAPPROG ---
SOAP Progress Note Assessment/Plan: HISTORY AND PHYSICAL: Name SELIN HOWARD (73yo, M) ID# [id number] 1945 [address] MAIN OFFICE Provider SEKOU CORNELIUS M.D. Insurance Med [place]: [place] Insurance # : [id number] Med Secondary[place] Insurance # : [id number] Policy/Group # : [id number] Med Durable Medical Equipment: [facility] (MEDICARE DME REGION C) Insurance # : [id number] Prescription: CMX - Member is eligible. details Prescription: CMX - Member is eligible. details Prescription: ESI1 - Member is eligible. details Chief Complaint Patient presents today to discuss and proceed with a right trapezoid partial resection and right dorsal distal radius partial resection with possible capsular interposition within the next few weeks Patient's Care Team Orthopedic Surgeon: DEBBY TROY MD: [id number] [id number], [place] [address], , Patient's Pharmacies [id number] ([place]): [phone] [facility] [id number], Ph , Vitals None recorded. Allergies Allergies not reviewed (last reviewed 10/03/2018) NKDA Medications Reviewed Medications ARIPiprazole 2 mg tablet 10/08/18 filled [facility] armodafinil 250 mg tablet Take 1 tablet(s) every day by oral route. 12/27/18 filled [facility] Asprin Ec Low Dose 81mg 3x week 01/23/18 entered [facility] Ro[facility] atorvastatin 10 mg tablet 05/16/18 filled [facility] betamethasone acetate and sodium phos 6 mg/mL suspension for injection Take 1 mL by injection route. 11/15/18 administered Sekou Cornelius M.D. Carafate 100 mg/mL oral suspension 03/31/18 filled [facility] cephALEXin 500 mg capsule 04/04/18 filled [facility] Curcumin 01/23/18 entered [facility] Bob diclofenac 1 % topical gel APPLY 2 GRAM TO THE AFFECTED AREA(S) BY TOPICAL ROUTE 4 TIMES PER DAY 06/21/18 filled [facility] dicyclomine 10 mg capsule 04/16/18 filled [facility] Eliquis 5 mg tablet 05/14/18 filled [facility] escitalopram 10 mg tablet 10/05/18 filled [facility] Liliana C 01/23/18 entered [facility] Rojas Fish Oil 01/23/18 entered [facility] Rojas leslie extract 01/23/18 entered [facility] Rojas leflunomide 20 mg tablet 09/18/18 filled [facility] magnesium glycinate 01/23/18 entered Shay'Henny Rojas methylPREDNISolone 4 mg tablet 07/25/18 filled [facility] Multi Vitamin 01/23/18 entered [facility] Rojas nystatin 500,000 unit tablet 07/22/18 filled [facility] ondansetron HCl 4 mg tablet TK 1 T PO Q 6 H PRN N 01/29/18 filled [facility] oxyCODONE 5 mg tablet 08/01/18 filled [facility] predniSONE 10 mg tablet 06/25/18 filled [facility] Remicade q 8 weeks 01/23/18 entered Stevie Rojas sotalol 120 mg tablet 12/09/18 filled [facility] sulfamethoxazole 800 mg-trimethoprim 160 mg tablet 04/01/18 filled [facility] tamsulosin 0.4 mg capsule 12/28/18 filled [facility] traMADol 50 mg tablet Take 1 tablet(s) every 6 hours by oral route. 08/21/18 filled [facility] Xarelto 20 mg tablet 02/22/18 filled [facility] [place] Frankincense 350mg/daily Vaccines None recorded. 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 - Onset: 08/23/2018 Proximal interphalangeal joint of finger pain - Onset: 09/20/2018, Left Pain in thumb - Onset: 09/20/2018, Right Rupture of scapholunate ligament of wrist - Onset: 01/23/2018 Compartment syndrome of lower limb - Onset: 11/15/2018, Bilateral Compartment syndrome - Onset: 08/02/2018 Triangular fibrocartilage tear - Onset: 01/23/2018 Pain of right wrist - Onset: 01/07/2018 Family History Family History not reviewed (last reviewed 10/03/2018) Father - Arthritis Mother - Malignant neoplastic disease Social History Social History not reviewed (last reviewed 10/03/2018) Smoking Status: Never smoker Occupation: [employer] 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 Chewing tobacco: none Alcohol intake: Occasional Alcohol-years of use: 58 Caffeine intake: Moderate Illicit drugs: none Exercise level: Moderate Sporting activities: walking, biking,cross country skiing Hand Dominance: Right Education: Post Graduate Live alone or with others?: with others Surgical History Surgical History not reviewed (last reviewed 10/03/2018) Wrist arthroscopy (surg) - 01/29/2018 Pacemaker - 11/26/2012 Other - 11/26/2007 Past Medical History Past Medical History not reviewed (last reviewed 10/03/2018) Arthritis: Y Depression: Y Kidney Disease: Y Pacemaker: Y Sleep Apnea: Y Urinary Tract Infection: Y Screening None recorded. HPI This is a very pleasant 73 year old male with: -two previous right wrist surgeries approximately [address] Beatrice Monet for probable SLIL repair -psoriatic arthritis treated with remicade -01/11/18 -- right wrist CT arthrogram - Complete tear of the dorsal band of the SLIL with likely associated stage II SLAC wrist, small full thickness TFCC tear , radiopaque suture material overlying the dorsal scaphoid, lunate, and capitate from previous surgery -01/29/18 -- right wrist arthroscopy with TFCC debridement, proximal row carpectomy and radial styloidectomy -05/2018 -- insidious onset of left ring finger PIPJ swelling -07/28/18 -- bilateral leg compartment syndrome (without any inciting traumatic event but after patient changed anticoagulants) treated with bilateral fasciotomies (Dr. Troy) -right basilar thumb pain after using a walker -- s/s c/w right thumb CMCJ arthritis -08/23/18 -- right thumb CMCJ injection with partial symptomatic relief - right radial-sided wrist pain -- s/s c/w right wrist DeQuervain's tenosynovitis -08/30/2018 -- right wrist first dorsal compartment injection with minimal change in symptoms -09/06/2018 -- right wrist radiocarpal joint injection with moderate symptomatic improvement -09/25/2018 -- right wrist and thumb CT -- radio-trapezoid impingement with wrist extension,advanced right thumb CMCJ arthritis -11/15/2018 -- right wrist radiocarpal injection with partial symptomatic improvement He presents today to re-discuss options for his right wrist. ROS ROS as noted in the HPI Physical Exam Patient is a 73-year-old male. Bilateral wrist examination Inspection/palpation: Right: TTP overlying trapezoid and dorsal distal radius with the wrist in extension Left: Normal resting posture. Wrist ROM Wrist Flexion: 45 / 90 / 90 Extension: 45 / 90 / 90 Forearm Supination: 0-80 / 0-80 / 0-80 Pronation: 0-80 / 0-80 / 0-80 Wrist/hand strength (R / L / Normal) ECRL/ECRB (C6): / 5 FCU: ECU: EDC: EPL (PIN): FPL (AIN): FDS (C8): FDP (C8): FDP-I (C8 / AIN): DI (C8-T1): PI (C8-T1): Wrist/hand sensory MABC: + / + / + LABC: + / + / + Median: + / + / + Palmar cutaneous: + / + / + Radial: + / + / + SBRN: + / + / + Ulnar: + / + / + DSBUN: + / + / + Bilateral thumb examination Inspection/palpation: Right: Mild TTP overlying the right thumb volar CMCJ Left: Soft, no tenderness to palpation. Thumb ROM CMC Radial abduction: 65 / 80 / 80 Palmar abduction: 65 / 80 / 80 MCP: 0-50 / 0-60 / 0-60 IP: 0-45 / 0-50 / 0-50 Thumb motors FPL: 5 / 5 EPL: / 5 / 5 Thumb sensory RDN: + / + / + UDN: + / + / + Thumb tests MCP RCL: - / - / - UCL: - / - / - IP RCL: - / - / - UCL: - / - / - Other thumb tests Triggering: - / - / - Dupuytrens cords: - / - / - STT grind: - / - / - CMC grind: - / - / - Bilateral finger examination Inspection/palpation: Right: Soft, no tenderness to palpation. Left: Minimal enlargement and TTP overlying the left ring finger PIPJ Finger ROM Index MCP: 0-80 / 0-80 / 0-80 PIP: 0-105 / 0-105 / 0-105 DIP: 0-75 / 0-75 / 0-75 Long MCP: 0-90 / 0-90 / 0-90 PIP: 0-105 / 0-105 / 0-105 DIP: 0-75 / 0-75 / 0-75 Ring MCP: 0-95 / 0-85 / 0-95 PIP: 0-105 / 0-75 / 0-105 DIP: 0-75 / 0-55 / 0-75 Small MCP: 0-100 / 0-100 / 0-100 PIP: 0-105 / 0-105 / 0-105 DIP: 0-75 / 0-75 / 0-75 Finger motor and sensory Index FDS: + / + / + FDP: + / + / + EDC: + / + / + RDN: + / + / + UDN: + / + / + Long FDS: + / + / + FDP: + / + / + EDC: + / + / + RDN: + / + / + UDN: + / + / + Ring FDS: + / + / + FDP: + / + / + EDC: + / + / + RDN: + / + / + UDN: + / + / + Small FDS: + / + / + FDP: + / + / + EDC: + / + / + RDN: + / + / + UDN: + / + / + Finger tests Collateral ligament testing Finger: ring fingers MCP RCL: - / - / - UCL: - / - / - PIP RCL: - / - / - UCL: - / - / - DIP RCL: - / - / - UCL: - / - / - Assessment / Plan This is a very pleasant 73 year old male with: -two previous right wrist surgeries approximately [address] Beatrice Monet for probable SLIL repair -psoriatic arthritis treated with remicade -01/11/18 -- right wrist CT arthrogram - Complete tear of the dorsal band of the SLIL with likely associated stage II SLAC wrist, small full thickness TFCC tear , radiopaque suture material overlying the dorsal scaphoid, lunate, and capitate from previous surgery -01/29/18 -- right wrist arthroscopy with TFCC debridement, proximal row carpectomy and radial styloidectomy -05/2018 -- insidious onset of left ring finger PIPJ swelling -07/28/18 -- bilateral leg compartment syndrome (without any inciting traumatic event but after patient changed anticoagulants) treated with bilateral fasciotomies (Dr. Troy) -right basilar thumb pain after using a walker -- s/s c/w right thumb CMCJ arthritis -08/23/18 -- right thumb CMCJ injection with partial symptomatic relief - right radial-sided wrist pain -- s/s c/w right wrist DeQuervain's tenosynovitis -08/30/2018 -- right wrist first dorsal compartment injection with minimal change in symptoms -09/06/2018 -- right wrist radiocarpal joint injection with moderate symptomatic improvement -09/25/2018 -- right wrist and thumb CT -- radio-trapezoid impingement with wrist extension,advanced right thumb CMCJ arthritis -11/15/2018 -- right wrist radiocarpal injection with partial symptomatic imprvement Currently with right dorso-radial wrist pain with extension -- s/s c/w right radio-trapezoid impingement - I have discussed with the patient the risks, benefits, alternatives and complications associated with both non-operative (specifically, observation, splinting, NSAIDs, injections) and operative (specifically, right trapezoid partial resection and/or right dorsal distal radius partial resection with possible capsular interposition) forms of treatment - The patient fully understands the risks, benefits, alternatives, and complications associated with these forms of treatment and wishes to proceed with operative intervention as outlined above - He has signed the informed consent form for surgery and surgery will be scheduled for the near future. 1. Osteoarthrosis of the carpometacarpal joint of the thumb M18.11: Unilateral primary osteoarthritis of first carpometacarpal joint, right hand 2. Osteoarthritis of wrist - Right M19.031: Primary osteoarthritis, right wrist Return to Office None recorded. Encounter Sign-Off Encounter signed-off by Sekou Cornelius M.D. 03/17/19 12:21 ICD10 Worksheet Patient Problems: Problems Problem Status Onset Atrial fibrillation and flutter Active Compartment syndrome Acute Dyspnea on exertion Acute Leg hematoma Acute Palpitations Acute
[2019-03-18] MEDS ORDERED: LR 1,000 ML IV ONE (06:06)
[2019-03-18] MEDS ORDERED: CEFAZOLIN 2 GM/DEXTROSE/100 ML BAG IV ONE (06:45)
[2019-03-18] MEDS ORDERED: ceFAZolin 2 GM/DEXTROSE 100 ML IV ONE (06:47)
--- NOTE | 2019-03-18 06:47 | PDHPUP ---
History & Physical Update H&P update statement: This history and physical update is based on an assessment of the patient which was completed after admission or registration (within 24 hours), but prior to the surgery/procedure. H&P update: H&P reviewed & patient examined
--- NOTE | 2019-03-18 06:50 | PDANEPAE ---
ANE History of Present Illness R wrist ANE Past Medical History - Cardiovascular History Hx Hypertension: Yes Hx Arrhythmias: Yes Hx Chest Pain: No Hx Coronary Artery / Peripheral Vascular Disease: Yes Hx CHF / Valvular Disease: No Hx Palpitations: No Cardiovascular History Comment: afib. atach. pacemaker. htn. sycope with afib last being in 2012 - Pulmonary History Hx COPD: No Hx Asthma/Reactive Airway Disease: No Hx Recent Upper Respiratory Infection: No Hx Oxygen in Use at Home: No Hx Sleep Apnea: Yes Sleep Apnea Screening Result - Last Documented: Positive Pulmonary History Comment: maryana positive uses cpap- instructed pt to bring to hospital - Neurologic History Hx Cerebrovascular Accident: No Hx Seizures: No Hx Dementia: No Neurologic History Comment: compressed discs x3 currently - Endocrine History Hx Diabetes: No - Renal History Hx Renal Disorders: Yes Renal History Comment: BPH. frequency and urgency. kidney stones when he was younger - Liver History Hx Hepatic Disorders: No - Neurological & Psychiatric Hx Hx Neurological and Psychiatric Disorders: Yes Neurological / Psychiatric History Comment: hx of depression, none in 25 yrs - Cancer History Hx Cancer: No Cancer History Comment: BASAL CELL REMOCED - Congenital Disorder History Hx Congenital Disorders: Yes Congenital History Comment: perthes disease - GI History Hx Gastrointestinal Disorders: No Gastrointestinal History Comment: OCCAS STOMACH ACID PROBLEMS - Other Health History Other Health History: wears glasses. thrombocytopenia. psoriatic arthritis. psoriasis vs eczema- live study manager evaluated 03/05/19 - Chronic Pain History Chronic Pain: Yes (lower back) - Surgical History Prior Surgeries: 07/28/18 release of bilateral lower legs for compartment syndrome with [facility]. 01/29/18 right wrist scope and trcc tear repair with . 08/04/13, 01/29/13, EP study, ablation with Dhiraj. 01/15/13 CV with Ismael. 10/03/11 ZAC with Reji. 10/26/10 right wrist surgery with [facility]- [facility]. T&A. angio. bunionectomy. 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: [email or web address] Pacemaker Model: Toño VERONICA-Mauri Pacemaker Mode: DDD-CLS Pacemaker Set Rate: 65 Date Pacemaker Last Checked: 01/05/19 ANE Patient History - Allergies Allergies/Adverse Reactions: diclofenac Allergy (Verified 03/06/19 09:21) lotion caused irritation - Home Medications Home Medications: Remicade Inj 100 mg (*) 09/24/18 [Last Taken 1 Month Ago ~02/15/19] SOTALOL BID 09/24/18 [Last Taken 03/17/19] Tamsulosin HCl 09/24/18 [Last Taken 03/17/19] Herbals/Supplements -Info Only 03/06/19 [Last Taken 1 Week Ago ~03/11/19] Naltrexone 4.5 mg PO HS 03/06/19 [Last Taken 03/17/19] - NPO status NPO Status: no food or drink >8 hours NPO Since - Liquids (Date): 03/18/19 NPO Since - Liquids (Time): 02:30 NPO Since - Solids (Date): 03/17/19 NPO Since - Solids (Time): 18:00 - Anes Hx Anes Hx: no prior problems - Smoking Hx Smoking Status: Never smoked - Alcohol Use Alcohol Use: Occasionally - Family Anes Hx Family Anes Hx: none Family Hx Anesthesia Complications: none ANE Labs/Vital Signs - Vital Signs Blood Pressure: 133/84 Heart Rate: 72 Respiratory Rate: 16 O2 Sat (%): 95 Height: 170.18 cm Weight: 69.4 kg ANE Physical Exam - Airway Neck exam: FROM Mallampati Score: Class 2 Mouth exam: normal dental/mouth exam Mouth image: 1 - chipped - Pulmonary Pulmonary: no respiratory distress, clear to auscultation - Cardiovascular Cardiovascular: regular rate and rhythym, no murmur, rub, or gallop - ASA Status ASA Status: III ANE Anesthesia Plan Anesthesia Plan: GA w LMA
[2019-03-18] MEDS ORDERED: fentaNYL 100 MCG/2 ML INJ ONE ×3 (06:56→09:23)
[2019-03-18] MEDS ORDERED: PROPOFOL 200 MG/20 ML VIAL ONE (06:56)
[2019-03-18] MEDS ORDERED: LIDOCAINE 2% 100 MG/5 ML SYR ONE (06:57)
[2019-03-18] MEDS ORDERED: BUPIVACAINE 0.5% 30 ML SDV ONE ×2 (07:01→07:07)
[2019-03-18] MEDS ORDERED: LIDOCAINE 1% 300 MG/30 ML SDV ONE ×2 (07:01→07:06)
[2019-03-18] MEDS ORDERED: ONDANSETRON 4 MG/2 ML VIAL ONE (07:41)
[2019-03-18] MEDS ORDERED: HYDROmorphONE/DILAUDID 1 MG/ML INJ IVP PRN (07:41)
[2019-03-18] MEDS ORDERED: oxyCODONE IR 5 MG TAB PO PRN (07:41)
[2019-03-18] MEDS ORDERED: NALOXONE HCL 0.4 MG/ML INJ IVP PRN (07:41)
[2019-03-18] MEDS ORDERED: ONDANSETRON 4 MG/2 ML VIAL IVP PRN (07:41)
[2019-03-18] MEDS ORDERED: ACETAMINOPHEN 500 MG TAB PO PRN (07:41)
[2019-03-18] MEDS ORDERED: DEXAMETHASONE 4 MG/ML VIAL ONE (07:41)
--- NOTE | 2019-03-18 08:47 | POSTANESTH ---
Post Anesthetic Evaluation Cardiovascular Status: Normal, Stable, Similar to Pre-Op Cond Respiratory Status: Normal, Stable, Similar to Pre-op Cond. Level of Consciousness/Mental Status: Can Participate in Eval, Alert and Oriented Pain Control: Adequate, Prn Tx Ordered Nausea/Vomiting Control: Adequate, Prn Tx Ordered Complications Possibly Related to Anesthesia: None Noted
[2019-03-18] MEDS: fentaNYL 100 MCG/2 ML INJ IVP PRN ×4 (08:59→09:28)
[2019-03-18] MEDS ORDERED: HYDROCODONE/APAP 5/325 TAB ONE ×2 (09:23→09:52)
[2019-03-18] MEDS: HYDROCODONE/APAP 5/325 TAB PO PRN ×2 (09:24→09:52)
[2019-03-18] MEDS ORDERED: oxyCODONE IR 5 MG TAB PO ONE (11:09)
[2019-03-18] MEDS ORDERED: oxyCODONE IR 5 MG TAB ONE (11:11)
[2019-03-18 12:02] VITALS: BP 124/70
--- NOTE | 2019-03-19 03:36 | GOP ---
[f rep st] OPERATIVE REPORT PATIENT: SELIN HOWARD DATE OF SERVICE: 03/18/19 PATIENT DATE OF : 1945 SURGEON: Sekou Cornelius M.D. ONCOLOGY REP: Ankita Castaneda PA-C Mrs. Fernando assistance was medically necessary for patient positioning and the retraction of vital structures. 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) OPERATIVE PROCEDURES: CPT code 89151 Right wrist arthrotomy with synovectomy CPT code 71740 Right wrist partial trapezoidectomy CPT code 64583 Right wrist partial dorsal distal radius excision CPT code 07946 Right wrist radio-carpal interposition arthroplasty CPT code 76401 -- Fluoroscopy by surgeon, up to 1 hour CPT code 52099 -- Application of a short-arm splint Modifier 47 -- Regional anesthesia by surgeon EBL: 2cc COMPLICATIONS: None TOURNIQUET TIME: 63 minutes at 250 mmHg IMPLANTS: None BRIEF CLINICAL NOTE: This is a very pleasant 73 year old male with a significant history for previously undergoing a right wrist proximal row carpectomy with radial styloidectomy. During his post-operative course, he developed right dorsal and radial wrist pain when loading his wrist in an extended position. A right wrist CT scan demonstrated right radio-trapezoid impingement. As such, I discussed the risks, benefits, alternatives, and complications associated with both non-operative (specifically, observation, splinting, activity modifications, NSAIDs, injection) and operative (specifically, right wrist arthrotomy with synovectomy and partial trapezoid and/or distal radius excision with possible interposition arthroplasty) forms of treatment. The patient fully understands the risks, benefits, alternatives, and complications associated with both forms of treatment and wishes to proceed with operative intervention as outlined above. The patient has signed the informed consent form for surgery. OPERATIVE NOTE: On the day of surgery, all of the patients questions were answered. The patient was then transferred from the pre-operative area into the operating room and a formal, Time-Out procedure was performed. The patient was identified by name, medical record number, social security number, and date of . In addition, the patients right upper extremity was identified as the correct portion of the patients body for surgery with the patients right wrist being identified as the correct portion of that extremity for surgery. The anesthesia team administered pre-operative antibiotics for prophylaxis. The brachium was then padded with webril and an 18-inch tourniquet was applied. The extremity was then prepped and draped in the normal sterile fashion. A sterile marking pen was then utilized to octavio out a dorsal longitudinal incision overlying the 3-4 interval which extended distally in-line with the extensor pollicis longus tendon. An Esmarch was utilized to exsanguinate the upper extremity and tourniquet was inflated to 250 mmHg. A number 15 blade was then used to incise the skin. Meticulous hemostasis was obtained in the subcutaneous plane utilizing bipolar cautery. Superficial sensory nerve branches were identified and protected. Meticulous hemostasis was obtained in the subcutaneous plane. The contents of the second, third, and fourth dorsal compartments were identified and protected. The extensor retinaculum was incised longitudinally at the 3-4 interval. The contents of the second, third, and fourth dorsal compartments were then retracted to expose the underlying dorsal and radial wrist joint capsule. A ligament-sparing Sutherland capsulotomy was performed to expose the underlying carpus and dorsal distal radius (arthrotomy). A synovial rongeur was then utilized to perform a complete synovectomy of the joint to improve visualization. A small portion of the dorsal trapezoid and the dorsal rim of the distal radius were then excised utilizing a 2.3mm round arlin. PA and lateral C-arm images demonstrated adequate space between the dorsal trapezoid and the dorsal distal radius with the wrist in maximum extension. These images were printed and saved. The entire wound was then copiously irrigated with sterile normal saline. The dorsal capsule was then interposed between the dorsal distal radius and the dorsal trapezoid with 2-0 vicryl sutures. The remaining dorsal capsule was re- approximated with 2-0 vicryl sutures. The extensor retinaculum and the deep dermal plane were re-approximated with 3-0 vicryl sutures. The skin was re- approximated with a running 4-0 monocryl subcuticular stitch. The skin was cleaned with sterile normal saline and dried. Dermabond was applied to the incision and a mixture of 1% lidocaine and 0.5% Marcaine was then utilized to perform a regional block of the operative site. A Xeroform gauze dressing was then applied followed by a dry sterile dressing and short-arm volar slab splint. Once the splint was completely in place, the tourniquet was deflated. After complete deflation of the tourniquet, all fingers and the thumb demonstrated brisk capillary refill. The patient was then reversed from anesthesia and transferred from the operating room table onto the post-operative gurney and transferred from the operating room to the post-anesthesia care unit in stable condition. POST-OPERATIVE PLAN: The patient will remain in the current splint and dressing for the next 2 weeks. After 2 weeks, I will see the patient back in the office, the original splint and dressing will be removed, repeat wrist radiographs will be obtained, and the patient will be started on a course of CHT for wrist ROM. /[id number]/MODL MTDD
== END 2019-03-18 12:04 | disposition home or self-care (01) ==
LOC: FSGY 05:42
PROVIDERS: ATTEND Orthopaedic Surgery Hand Surgery
DX: M13.831 Other specified arthritis, right wrist (principal)
CPT/HCPCS: J0690; J1100; J2001; J2405; J2704; J3010

== ENCOUNTER → 2019-04-01 | Outpatient (CLI) | payer OTHER | LOC: FIMAGING 15:11 | PROVIDERS: ATTEND Family Medicine | DX: N32.89 Other specified disorders of bladder (principal); K59.00 Constipation, unspecified; N40.2 Nodular prostate without lower urinary tract symptoms ==